=== PATIENT | female | born 1930 | race Caucasian/White ===

== ENCOUNTER 2016-10-15 19:46 | Emergency (ER) | payer MEDICARE, BC ==
[2016-10-15] MEDS ORDERED: Ketorolac 30 MG/ML SDV IVPUSH ONE (20:37)
[2016-10-15] MEDS ORDERED: Sodium Chloride 0.9% 10 ML Syringe FLUSH PRN (20:37)
[2016-10-15] MEDS ORDERED: Dexamethasone 4 MG/ML 5 ML MDV IVPUSH ONE (20:38)
[2016-10-15] MEDS ORDERED: Ondansetron 4 MG/2 ML SDV IVPUSH ONE (20:38)
--- NOTE | 2016-10-15 20:44 | EDM.PDOC ---
ED HPI GENERAL MEDICAL PROBLEM - General Chief Complaint: Headache Stated Complaint: MIGRAINE Time Seen by Provider: 10/15/16 20:20 Source of Information: Reports: Patient, Family, Old Records History Limitations: Reports: No Limitations - History of Present Illness INITIAL COMMENTS - FREE TEXT/NARRATIVE: Lori comes back to [facility] with a relapse of migrainous headache over the past 4 days, unimproved with an injection of Toradol at the Clinic last weekend. There is constant throbbing headache, some nausea and occasional emesis , without photophobia. Her maintenance meds have not been effective today. She is accompanied by her daughter. - Related Data Allergies Allergy/AdvReac Type Severity Reaction Status Date / Time adhesive Allergy Hives Verified 06/15/15 09:18 aspirin Allergy Cannot Verified 05/11/15 16:25 Remember codeine Allergy Cannot Verified 05/11/15 16:25 Remember fentanyl Allergy Cannot Verified 05/11/15 16:25 Remember morphine Allergy Vomiting Verified 05/11/15 16:25 acetaminophen [From Percocet] AdvReac Nausea and Verified 06/15/15 09:18 Vomiting hydrocodone AdvReac Nausea and Verified 06/15/15 09:18 Vomiting hydromorphone HCl AdvReac Nausea and Verified 06/15/15 09:18 [From Dilaudid] Vomiting oxycodone HCl [From Percocet] AdvReac Nausea and Verified 06/15/15 09:18 Vomiting Home Meds: Home Meds Rizatriptan [Maxalt TIN FLOPPER] 10 mg PO ASDIRECTED PRN 03/18/14 [History] Ondansetron [Zofran ODT] 4 mg PO Q6H PRN #10 tab.dis 05/11/15 [Rx] Acetaminophen [Tylenol] 1,000 mg PO ASDIRECTED PRN 06/15/15 [History] Docusate Sodium [Colace] 8.6 - 50 mg PO BID PRN 06/15/15 [History] Ferrous Sulfate 324 mg PO DAILY 06/15/15 [History] Nadolol [Corgard] 40 mg PO DAILY 06/15/15 [History] Potassium Chloride [Klor-Con 10] 20 meq PO DAILY 06/15/15 [History] Ranitidine HCl [Zantac] 150 mg PO BID 06/15/15 [History] Zoledronic Acid in Water [Reclast] 5 mg IV ASDIRECTED 06/15/15 [History] Past Medical History Cardiovascular History: Reports: Heart Failure, Hypertension RN ORTHOPEDIC History: Reports: Musculoskeletal History: Reports: Back Pain, Chronic, Osteoarthritis, Osteoporosis Neurological History: Reports: Migraines Endocrine/Metabolic History: Reports: Osteopenia Hematologic History: Reports: Other (See Below) 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 Oncologic (Cancer) History: Reports: Breast - Past Surgical History HEENT Surgical History: Reports: Cataract Surgery Musculoskeletal Surgical History: Reports: Hip Replacement, Knee Replacement, Shoulder Replacement Social & Family History - Tobacco Use Smoking Status *Q: Never Smoker Second Hand Smoke Exposure: No - Caffeine Use Caffeine Use: Reports: Coffee - Alcohol Use Days Per Week of Alcohol Use: 0 - Recreational Drug Use Recreational Drug Use: No - Living Situation & Occupation Living situation: Reports: , Alone ED ROS GENERAL - Review of Systems Review Of Systems: ROS reveals no pertinent complaints other than HPI. - Physical Exam Exam: See Below Exam Limited By: No Limitations General Appearance: Alert, WD/WN, Moderate Distress Eye Exam: Bilateral Eye: EOMI, Normal Inspection, PERRL Ears: Normal External Exam, Normal TMs Nose: Normal Inspection Throat/Mouth: Normal Inspection, Normal Lips, Normal Oropharynx, Normal Voice Head Exam: Atraumatic, Normocephalic Neck: Normal Inspection, Supple, Non-Tender, Full Range of Motion Respiratory/Chest: Lungs Clear, Normal Breath Sounds, Chest Non-Tender Cardiovascular: Regular Rate, Rhythm, No Edema, No JVD, No Murmur GI/Abdominal: Normal Bowel Sounds, Soft, Non-Tender, No Organomegaly, No Distention, No Mass Neuro Exam (Abbreviated): Alert, Oriented, CN II-XII Intact, Normal Gait, Normal Reflexes, No Motor/Sensory Deficits Back Exam: Normal Inspection, Full Range of Motion Extremities: Normal Inspection Psychiatric: Depressed Mood, Flat Affect Skin Exam: Warm, Dry, Intact, Normal Color Course - Vital Signs Text/Narrative:: Following assession at the [facility], an IV was started in the RUE, and 1L of NS administered over the next 2 hrs, in addition to Toradol 30 mg IV, Zofran 8 mg IV, and Dexamethasone 10 mg IV. VS were carefully monitored. She has been off BP meds, and her BP was elevated 185/100, and she was administered Labetolol 10 mg IV before discharge with good effect. Last Recorded V/S: Last Vital Signs Temp 37.1 C 10/15/16 20:10 Pulse 85 10/15/16 22:15 Resp 18 10/15/16 22:15 BP 192/96 H 10/15/16 22:15 Pulse Ox 97 10/15/16 22:15 - Orders/Labs/Meds Orders: Active Orders 24 hr Category Date Time Status Sodium Chloride 0.9% [Normal Saline] 1,000 ml Med 10/15/16 20:45 Active IV ASDIRECTED Sodium Chloride 0.9% [Saline Flush] Med 10/15/16 20:37 Active 10 ml FLUSH ASDIRECTED PRN Peripheral IV Insertion Adult [OM.PC] Routine Oth 10/15/16 20:37 Ordered Medication Orders Sodium Chloride (Normal Saline) 1,000 mls @ 500 mls/hr IV ASDIRECTED RAMONA Last Admin: 10/15/16 21:03 Dose: 500 mls/hr Sodium Chloride (Saline Flush) 10 ml FLUSH ASDIRECTED PRN PRN Reason: Keep Vein Open Meds: Medications Generic Name Dose Route Start Last Admin Trade Name Freq PRN Reason Stop Dose Admin Sodium Chloride 1,000 mls @ 500 mls/hr 10/15/16 20:45 10/15/16 21:03 Normal Saline IV 500 mls/hr ASDIRECTED RAMONA Administration Sodium Chloride 10 ml 10/15/16 20:37 Saline Flush FLUSH ASDIRECTED PRN Keep Vein Open Discontinued Medications Generic Name Dose Route Start Last Admin Trade Name Freq PRN Reason Stop Dose Admin Dexamethasone 10 mg 10/15/16 20:38 10/15/16 21:10 Dexamethasone IVPUSH 10/15/16 20:39 10 mg ONETIME ONE Administration Ketorolac Tromethamine 30 mg 10/15/16 20:37 10/15/16 21:07 Toradol IVPUSH 10/15/16 20:38 30 mg ONETIME ONE Administration Labetalol HCl 10 mg 10/15/16 22:20 10/15/16 22:28 Normodyne IVPUSH 10/15/16 22:21 10 mg ONETIME ONE Administration Protocol Ondansetron HCl 8 mg 10/15/16 20:38 10/15/16 21:05 Zofran IVPUSH 10/15/16 20:39 8 mg ONETIME ONE Administration Departure - Departure Time of Disposition: 22:50 Disposition: Home, Self-Care 01 Condition: Good Clinical Impression: Migraine, HTN, Essential hypertension - Discharge Information Forms: ED Department Discharge - Problem List & Annotations (1) Migraine SNOMED Code(s): 34518242 Code(s): G43.909 - MIGRAINE, UNSP, NOT INTRACTABLE, WITHOUT STATUS MIGRAINOSUS Status: Acute Current Visit: Yes Annotation/Comment:: Resume maintenance meds in the am. (2) HTN, Essential hypertension SNOMED Code(s): 78732882 Code(s): I10 - ESSENTIAL (PRIMARY) HYPERTENSION Status: Acute Priority: High Current Visit: Yes Annotation/Comment:: Call PCP regarding BP management in the am, as the Corgaard had been held for several days. - Problem List Review Problem List Initiated/Reviewed/Updated: Yes - My Orders Last 24 Hours: My Active Orders 10/15/16 20:37 Sodium Chloride 0.9% [Saline Flush] 10 ml FLUSH ASDIRECTED PRN Peripheral IV Insertion Adult [OM.PC] Routine 10/15/16 20:45 Sodium Chloride 0.9% [Normal Saline] 1,000 ml IV ASDIRECTED - Assessment/Plan Last 24 Hours: My Active Orders 10/15/16 20:37 Sodium Chloride 0.9% [Saline Flush] 10 ml FLUSH ASDIRECTED PRN Peripheral IV Insertion Adult [OM.PC] Routine 10/15/16 20:45 Sodium Chloride 0.9% [Normal Saline] 1,000 ml IV ASDIRECTED Plan: Follow up with PCP.
[2016-10-15] MEDS ORDERED: Sodium Chloride 0.9% 1,000 ML IV SCH (20:45)
[2016-10-15] MEDS ORDERED: Labetalol 20 MG/4 ML Syringe IVPUSH ONE (22:20)
[2016-10-15 23:23] VITALS: BP 160/65
== END 2016-10-15 23:05 | disposition home or self-care (01) ==
LOC: FB.ED 19:46
DX: G43.909 Migraine, unspecified, not intractable, without status migrainosus (principal); I50.9 Heart failure, unspecified; I10 Essential (primary) hypertension; Z86.718 Personal history of other venous thrombosis and embolism; Z85.3 Personal history of malignant neoplasm of breast; Z88.8 Allergy status to other drugs, medicaments and biological substances; Z79.899 Other long term (current) drug therapy
CPT/HCPCS: 96365; 96375; 99283; J1100; J1885; J2405; J7040; 96361; 96374; 99284

== ENCOUNTER 2017-03-18 17:37 | Emergency (ER) | payer MEDICARE, BC ==
--- NOTE | 2017-03-18 18:44 | EDM.PDOC ---
ED HPI GENERAL MEDICAL PROBLEM - General Chief Complaint: Chest Pain Stated Complaint: HIGH BP, CHEST PAIN Time Seen by Provider: 03/18/17 18:10 Source of Information: Reports: Patient History Limitations: Reports: No Limitations - History of Present Illness INITIAL COMMENTS - FREE TEXT/NARRATIVE: c/o L-sided chest wall pain x 2-3y occurs at 3p daily and lasts until bedtime, gone when she wakes up in the middle of the night, always in the same spot at the AAL to the L of the nipple, tender to touch, no change with DB or walking or moving arms worse today, here with daughter 70y h/o migraines, takes Maxalt most AMs, takes Aleve x 2 and APAP 500 mg x 2 most AMs, some AMs will take tramadol saw [place] neurologist 2w ago who inc'd losartan 50 to 100 mg for inc'd BP, also gave Botox for her migraines saw PCP Dr Lucas 3d ago, no change in meds, discussed her CP with him no f/c/d, no cough, no n/v drives altho dtr says "she is not supposed to," dtr drove her over had lumpectomy on L 17y ago, no RT, no CT left breast Pain Score (Numeric/FACES): 7 - Related Data Allergies Allergy/AdvReac Type Severity Reaction Status Date / Time adhesive Allergy Hives Verified 03/18/17 18:07 aspirin Allergy Cannot Verified 03/18/17 18:07 Remember codeine Allergy Cannot Verified 03/18/17 18:07 Remember fentanyl Allergy Cannot Verified 03/18/17 18:07 Remember morphine Allergy Vomiting Verified 03/18/17 18:07 acetaminophen [From Percocet] AdvReac Nausea and Verified 03/18/17 18:07 Vomiting hydrocodone AdvReac Nausea and Verified 03/18/17 18:07 Vomiting hydromorphone HCl AdvReac Nausea and Verified 03/18/17 18:07 [From Dilaudid] Vomiting oxycodone HCl [From Percocet] AdvReac Nausea and Verified 03/18/17 18:07 Vomiting Home Meds: Home Meds Rizatriptan [Maxalt PAPER REWINDER OPERATOR] 10 mg PO ASDIRECTED PRN 03/18/14 [History] Acetaminophen [Tylenol] 1,000 mg PO ASDIRECTED PRN 06/15/15 [History] Docusate Sodium [Colace] 8.6 - 50 mg PO BID PRN 06/15/15 [History] Nadolol [Corgard] 40 mg PO BID 06/15/15 [History] Potassium Chloride [Klor-Con 10] 20 meq PO BEDTIME 06/15/15 [History] Zoledronic Acid in Water [Reclast] 5 mg IV ASDIRECTED 06/15/15 [History] Ondansetron [Zofran ODT] 4 mg PO BID 03/18/17 [History] Past Medical History HEENT History: Reports: Hard of Hearing, Impaired Vision Cardiovascular History: Reports: Heart Failure, 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: Musculoskeletal History: Reports: Back Pain, Chronic, Osteoarthritis, Osteoporosis Neurological History: Reports: Migraines Endocrine/Metabolic History: Reports: Osteopenia Hematologic History: Reports: Other (See Below) 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 Oncologic (Cancer) History: Reports: Breast - Past Surgical History HEENT Surgical History: Reports: Cataract Surgery Musculoskeletal Surgical History: Reports: Hip Replacement, Knee Replacement, Shoulder Replacement Social & Family History - Family History Family Medical History: Unobtainable - Tobacco Use Smoking Status *Q: Never Smoker Second Hand Smoke Exposure: No - Caffeine Use Caffeine Use: Reports: Coffee, Soda - Alcohol Use Days Per Week of Alcohol Use: 0 - Recreational Drug Use Recreational Drug Use: No - Living Situation & Occupation Living situation: Reports: , Alone ED ROS GENERAL - Review of Systems Review Of Systems: See Below Constitutional: Reports: No Symptoms HEENT: Reports: No Symptoms Respiratory: Reports: No Symptoms Cardiovascular: Reports: Chest Pain, Edema, Other (minimal edema, no diuretic) Endocrine: Reports: No Symptoms GI/Abdominal: Reports: No Symptoms : Reports: No Symptoms Musculoskeletal: Reports: No Symptoms Skin: Reports: No Symptoms Neurological: Reports: No Symptoms Psychiatric: Reports: No Symptoms Hematologic/Lymphatic: Reports: No Symptoms Immunologic: Reports: No Symptoms ED EXAM, GENERAL - Physical Exam Exam: See Below Exam Limited By: No Limitations General Appearance: Alert, WD/WN, No Apparent Distress. No: Mild Distress Ears: Normal External Exam, Normal Canal, Hearing Grossly Normal Nose: Normal Inspection, Normal Mucosa, No Blood Throat/Mouth: Normal Inspection, Normal Lips, Normal Teeth, Normal Gums, Normal Oropharynx, Normal Voice, No Airway Compromise Head: Atraumatic, Normocephalic Neck: Normal Inspection, Supple, Non-Tender, Full Range of Motion Respiratory/Chest: No Respiratory Distress, Lungs Clear, Normal Breath Sounds, No Accessory Muscle Use, Other (chest wall with 1+ tender at AAL at 4th and 5th ribs, a little tender at breast at L half, no masses, no axillary LNs) Cardiovascular: Regular Rate, Rhythm, No Edema, No Gallop, No JVD, No Murmur, No Rub GI/Abdominal: Normal Bowel Sounds, Soft, Non-Tender, No Organomegaly, No Distention, No Mass Back Exam: Normal Inspection, Full Range of Motion, NT Extremities: Normal Inspection, Normal Range of Motion, Non-Tender, Normal Capillary Refill, Other (1+ edema to knees b/l) Neurological: Alert, Oriented, CN II-XII Intact, Normal Cognition, No Motor/ Sensory Deficits, Other (O x 3, does have difficulty remembering medical hx which was volunterred by dtr) Psychiatric: Normal Affect, Normal Mood Skin Exam: Warm, Dry, Intact, Normal Color, No Rash Lymphatic: No Adenopathy Course - Vital Signs Last Recorded V/S: Last Vital Signs Temp 36.7 C 03/18/17 17:40 Pulse 64 03/18/17 17:40 Resp 22 H 03/18/17 17:40 BP 183/74 H 03/18/17 17:40 Pulse Ox 100 03/18/17 17:40 - Orders/Labs/Meds Orders: Active Orders 24 hr Category Date Time Status EKG Documentation Completion [RC] ASDIRECTED Care 03/18/17 18:30 Active CBC WITH AUTO DIFF [HEME] Stat Lab 03/18/17 18:40 Received COMPREHENSIVE METABOLIC PN,CMP [CHEM] Stat Lab 03/18/17 18:40 Received CRP [C-REACTIVE PROTEIN] [CHEM] Stat Lab 03/18/17 18:40 Received TROPONIN I [CHEM] Stat Lab 03/18/17 18:40 Received EKG 12 Lead [EK] Routine Ther 03/18/17 18:30 Ordered - Re-Assessments/Exams Free Text/Narrative Re-Assessment/Exam: 03/18/17 19:05 BP improved nicely to 166/86, PE c/w chest wall strain, nonspecific, no cardiac sxs, will d/c, Dr Colby to review labs after change of shift and will address if abnl Departure - Departure Time of Disposition: 19:06 Disposition: Home, Self-Care 01 Condition: Good Clinical Impression: Chest wall discomfort Instructions: Chest Wall Pain Referrals: Layton Galarza MD [Primary Care Provider] - Forms: ED Department Discharge Additional Instructions: Continue current meds. Use warm compresses for 10 minutes several times a day as needed. May repeat acetaminophen 500 mg 2 tabs up to 4 times a day. See Dr Lucas in 2-3 days as needed. Return to ED if you are feeling worse. Call your Physician or Return to Emergency Department if: * Your condition worsens in any way. * You develop fever greater than 100.4. * You have vomitting that does not stop with medications. * You have pain that is not controlled with medications. - My Orders Last 24 Hours: My Active Orders 03/18/17 18:30 EKG Documentation Completion [RC] ASDIRECTED EKG 12 Lead [EK] Routine 03/18/17 18:40 CBC WITH AUTO DIFF [HEME] Stat COMPREHENSIVE METABOLIC PN,CMP [CHEM] Stat CRP [C-REACTIVE PROTEIN] [CHEM] Stat TROPONIN I [CHEM] Stat - Assessment/Plan Last 24 Hours: My Active Orders 03/18/17 18:30 EKG Documentation Completion [RC] ASDIRECTED EKG 12 Lead [EK] Routine 03/18/17 18:40 CBC WITH AUTO DIFF [HEME] Stat COMPREHENSIVE METABOLIC PN,CMP [CHEM] Stat CRP [C-REACTIVE PROTEIN] [CHEM] Stat TROPONIN I [CHEM] Stat
[2017-03-18 19:42] VITALS: BP 179/77
== END 2017-03-18 19:30 | disposition home or self-care (01) ==
LOC: FB.ED 17:37
DX: R07.89 Other chest pain (principal); I11.0 Hypertensive heart disease with heart failure; I50.9 Heart failure, unspecified; Z88.5 Allergy status to narcotic agent; Z88.6 Allergy status to analgesic agent; Z91.048 Other nonmedicinal substance allergy status
CPT/HCPCS: 36415; 80053; 84484; 85025; 86140; 93005; 99285

== ENCOUNTER 2018-09-22 13:42 | Inpatient (IN) | payer MEDICARE, BC ==
[2018-09-22] MEDS ORDERED: Levofloxacin/Dextrose 5%-Water 500 MG in Premix Bag 1 BAG IV SCH (15:30)
[2018-09-22] MEDS ORDERED: Albuterol/Ipratropium 3.0-0.5 MG/3 ML Neb Soln NEB SCH (16:00)
[2018-09-22] MEDS: Sodium Chloride 0.9% 10 ML Syringe FLUSH PRN ×2 (16:09→18:19)
[2018-09-22] MEDS ORDERED: RIZATRIPTAN 10 MG PO PRN (17:03)
[2018-09-22] MEDS ORDERED: Fluticasone Propionate Nasal Spray 16 GM Bottle NASBOTH PRN (17:03)
--- NOTE | 2018-09-22 17:05 | PCM.HP ---
H&P History of Present Illness - General Date of Service: 09/22/18 Admit Problem/Dx: Admission Diagnosis/Problem Admission Diagnosis/Problem Pneumonia Source of Information: Patient, Old Records History Limitations: Reports: No Limitations - History of Present Illness Initial Comments - Free Text/Narative: 87-year-old female who came in directly from the clinic because of. She had seen Dr. Beal last week and treated with Z-Tray for chest x-ray findings suggestive of pneumonia. She continues to cough and reports cough for at least 8 months,dry sometimes productive of yellow sputum. She has had recurrent treatments sinusitis with Dr Galarza, but with no improvement. She also endorses shortness of breath, fatigue, lack of appetite generalized malaise but she denies any fever or chills.She does not have any chest pain. She is previously healthy with exception of hypertension,a history of pulmonary embolism, and degenerative joint disease. - Related Data Allergies/Adverse Reactions: Allergies Allergy/AdvReac Type Severity Reaction Status Date / Time adhesive Allergy Hives Verified 03/18/17 18:07 aspirin Allergy Cannot Verified 03/18/17 18:07 Remember codeine Allergy Cannot Verified 03/18/17 18:07 Remember fentanyl Allergy Cannot Verified 03/18/17 18:07 Remember morphine Allergy Vomiting Verified 03/18/17 18:07 acetaminophen [From Percocet] AdvReac Nausea and Verified 03/18/17 18:07 Vomiting hydrocodone AdvReac Nausea and Verified 03/18/17 18:07 Vomiting hydromorphone HCl AdvReac Nausea and Verified 03/18/17 18:07 [From Dilaudid] Vomiting oxycodone HCl [From Percocet] AdvReac Nausea and Verified 03/18/17 18:07 Vomiting Home Medications: Home Meds Rizatriptan [Maxalt LIGHT ADJUSTER] 10 mg PO ASDIRECTED PRN 03/18/14 [History] Nadolol [Corgard] 40 mg PO DAILY 06/15/15 [History] Potassium Chloride [Klor-Con 10] 20 meq PO BEDTIME 06/15/15 [History] Zoledronic Acid in Water [Reclast] 5 mg IV Q360D 06/15/15 [History] Acetaminophen [Tylenol Extra Strength] 500 mg PO Q4H PRN 09/22/18 [History] Celecoxib 200 mg PO DAILY 09/22/18 [History] Donepezil HCl [Aricept] 10 mg PO DAILY 09/22/18 [History] Fluticasone Propionate [Flonase] 1 spray NASBOTH BID PRN 09/22/18 [History] Losartan [Cozaar] 100 mg PO DAILY 09/22/18 [History] Methimazole [Tapazole] 5 mg PO DAILY 09/22/18 [History] Nadolol [Corgard] 80 mg PO BEDTIME 09/22/18 [History] Pantoprazole Sodium [Protonix] 40 mg PO DAILY@0600 09/22/18 [History] Sennosides/Docusate Sodium [Senna-S] 1 tab PO BEDTIME 09/22/18 [History] amLODIPine [Norvasc] 5 mg PO DAILY 09/22/18 [History] traMADol [Ultram] 50 mg PO DAILY PRN 09/22/18 [History] Past Medical History HEENT History: Reports: Hard of Hearing, Impaired Vision Cardiovascular History: Reports: Heart Failure, Hypertension ROD HANGER History: Reports: Musculoskeletal History: Reports: Back Pain, Chronic, Osteoarthritis, Osteoporosis Neurological History: Reports: Migraines Endocrine/Metabolic History: Reports: Osteopenia Hematologic History: Reports: Other (See Below) 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 Oncologic (Cancer) History: Reports: Breast - Past Surgical History HEENT Surgical History: Reports: Cataract Surgery Musculoskeletal Surgical History: Reports: Hip Replacement, Knee Replacement, Shoulder Replacement Social & Family History - Family History Family Medical History: Unobtainable - Tobacco Use Smoking Status *Q: Never Smoker Second Hand Smoke Exposure: No - Caffeine Use Caffeine Use: Reports: Coffee - Recreational Drug Use Recreational Drug Use: No - Living Situation & Occupation Living situation: Reports: , Alone H&P Review of Systems - Review of Systems: Review Of Systems: ROS reveals no pertinent complaints other than HPI. Exam - Exam Exam: See Below - Vital Signs Vital Signs: Last Vital Signs Temp 98.1 F 09/22/18 15:20 Pulse 60 09/22/18 15:20 Resp 18 09/22/18 15:20 BP 155/76 H 09/22/18 15:20 Pulse Ox 95 09/22/18 15:20 Weight: 73.437 kg - Exam General: Alert, Oriented, 4 HEENT: PERRLA, Hearing Intact, Mucosa Moist & [place], Nares Patent, Normal Nasal Septum, Posterior Pharynx Clear, Conjunctiva Clear, EOMI, EACs Clear, TMs Clear Neck: Supple, Trachea Midline, 2 Lungs: Crackles Cardiovascular: Regular Rate, Regular Rhythm GI/Abdominal Exam: Normal Bowel Sounds, Soft, Non-Tender, No Organomegaly, No Distention, No Abnormal Bruit, No Mass, Pelvis Stable (Female) Exam: Deferred Rectal (Female) Exam: Deferred Back Exam: Normal Inspection, Full Range of Motion, NT Extremities: Normal Inspection, Normal Range of Motion, Non-Tender, No Pedal Edema, Normal Capillary Refill Skin: Warm, Dry, Intact Neurological: Cranial Nerves Intact, Reflexes Equal Bilateral Neuro Extensive - Mental Status: Alert, Oriented x3, Normal Mood/Affect, Normal Cognition Neuro Extensive - Motor, Sensory, Reflexes: CN II-XII Intact, Normal Gait, Normal Reflexes Psychiatric: Alert, Normal Affect, Normal Mood - Patient Data Lab Results Last 24 hrs: Laboratory Results - last 24 hr 09/22/18 09/22/18 Range/Units 15:45 15:45 WBC 9.0 (4.5-12.0) X10-3/uL RBC 4.58 (3.23-5.20) x10(6)uL Hgb 14.4 (11.5-15.5) g/dL Hct 41.1 (30.0-51.3) % MCV 89.7 (80-96) fL MCH 31.5 (27.7-33.6) pg MCHC 35.1 (32.2-35.4) g/dL RDW 13.2 (11.5-15.5) % Plt Count 236 (125-369) X10(3)uL MPV 9.3 (7.4-10.4) fL Neut % (Auto) 61.7 (46-82) % Lymph % (Auto) 27.2 (13-37) % Christian % (Auto) 9.6 (4-12) % Eos % (Auto) 1 (1.0-5.0) % Baso % (Auto) 0 (0-2) % Neut # (Auto) 5.6 (1.6-8.3) # Lymph # (Auto) 2.4 (0.6-5.0) # Christian # (Auto) 0.9 (0.0-1.3) # Eos # (Auto) 0.1 (0.0-0.8) # Baso # (Auto) 0.0 (0.0-0.2) # Sodium 138 (135-145) mmol/L Potassium 3.7 (3.5-5.3) mmol/L Chloride 104 (100-110) mmol/L Carbon Dioxide 26 (21-32) mmol/L BUN 22 H (7-18) mg/dL Creatinine 1.0 (0.55-1.02) mg/dL Est Cr Clr Drug Dosing 31.35 mL/min Estimated GFR (MDRD) 52 L (>60) BUN/Creatinine Ratio 22.0 H (9-20) Glucose 138 H (80-116) mg/dL Calcium 9.0 (8.6-10.2) mg/dL Total Bilirubin 0.4 (0.1-1.3) mg/dL AST 13 D (5-25) IU/L ALT 17 D (12-36) U/L Alkaline Phosphatase 66 (56-112) IU/L Total Protein 7.4 (6.0-8.0) g/dL Albumin 2.8 L (3.2-4.6) g/dL Globulin 4.6 g/dL Albumin/Globulin Ratio 0.6 Result Diagrams: 09/23/18 06:20 09/23/18 06:20 - Problem List (1) CAP (community acquired pneumonia) SNOMED Code(s): 000059396 ICD Code: J18.9 - PNEUMONIA, UNSPECIFIED ORGANISM Status: Acute Current Visit: Yes (2) History of pulmonary embolism SNOMED Code(s): 663720269 ICD Code: Z86.711 - PERSONAL HISTORY OF PULMONARY EMBOLISM Status: Chronic Current Visit: Yes (3) H/O malignant neoplasm of breast SNOMED Code(s): 969975513 ICD Code: Z85.3 - PERSONAL HISTORY OF MALIGNANT NEOPLASM OF BREAST Status: Chronic Current Visit: Yes (4) H/O CHF SNOMED Code(s): 800680735 ICD Code: Z86.79 - PERSONAL HISTORY OF OTHER DISEASES OF THE CIRCULATORY SYSTEM Status: Chronic Current Visit: Yes (5) HTN, Essential hypertension SNOMED Code(s): 58658687 ICD Code: I10 - ESSENTIAL (PRIMARY) HYPERTENSION Status: Chronic Priority : High Current Visit: No Problem Details: Call PCP regarding BP management in the am, as the Corgaard had been held for several days. (6) Migraine SNOMED Code(s): 76820780 ICD Code: G43.909 - MIGRAINE, UNSP, NOT INTRACTABLE, WITHOUT STATUS MIGRAINOSUS Status: Acute Current Visit: No Problem Details: Resume maintenance meds in the am. (7) Osteoarthritis of multiple joints SNOMED Code(s): 156517885 ICD Code: M15.9 - POLYOSTEOARTHRITIS, UNSPECIFIED Status: Chronic Current Visit: No Problem List Initiated/Reviewed/Updated: Yes Orders Last 24hrs: Active Orders 24 hr Category Date Time Status Patient Status [ADT] Routine ADT 09/22/18 15:20 Active Height and Weight [RC] DAILY Care 09/22/18 15:20 Active Oxygen Therapy [RC] PRN Care 09/22/18 15:20 Active RT Aerosol Therapy [RC] ASDIRECTED Care 09/22/18 15:21 Active Up With Assistance [RC] ASDIRECTED Care 09/22/18 15:20 Active VTE/DVT Education [RC] Per Unit Routine Care 09/22/18 15:20 Active Vital Signs [RC] Q8H Care 09/22/18 15:20 Active Regular Diet [DIET] Diet 09/22/18 Breakfast Active Chest 2V [CR] Stat Exams 09/22/18 15:20 Taken Chest w Cont [CT] Routine Exams 09/22/18 17:01 Ordered BASIC METABOLIC PANEL,BMP [CHEM] AM Lab 09/23/18 05:11 Ordered CBC WITH AUTO DIFF [HEME] AM Lab 09/23/18 05:11 Ordered CULTURE BLOOD [BC] Urgent Lab 09/22/18 15:45 Received CULTURE BLOOD [BC] Urgent Lab 09/22/18 15:50 Received PRO B-TYPE NATRIUR PEPT,BNPPRO [CHEM] DAILY Lab 09/23/18 05:11 Ordered TSH ULTRASENSITIVE [CHEM] AM Lab 09/23/18 05:11 Ordered Acetaminophen [Tylenol Extra Strength] Med 09/22/18 17:03 Ordered 500 mg PO Q4H PRN Albuterol/Ipratropium [DuoNeb 3.0-0.5 MG/3 ML] Med 09/22/18 17:00 Active 3 ml NEB QID Benzonatate [Tessalon Perles] Med 09/22/18 21:00 Ordered 200 mg PO TID Celecoxib [CeleBREX] Med 09/23/18 09:00 Ordered 200 mg PO DAILY Docusate Sodium/Sennosides [Senna Plus] Med 09/22/18 21:00 Ordered 1 tab PO BEDTIME Donepezil [Aricept] Med 09/23/18 09:00 Ordered 10 mg PO DAILY Fluticasone Propionate [Flonase] Med 09/22/18 17:03 Ordered 1 spray NASBOTH BID PRN Levofloxacin/Dextrose 5%-Water [Levaquin in D5W 500 MG/ Med 09/22/18 15:30 Active 100 ML] 500 mg Premix Bag 1 bag IV Q24H Nadolol [Naldol] Med 09/23/18 09:00 Ordered 40 mg PO DAILY Nadolol [Naldol] Med 09/22/18 21:00 Ordered 80 mg PO BEDTIME Pantoprazole [ProTONIX] Med 09/23/18 06:00 Ordered 40 mg PO DAILY@0600 Potassium Chloride [Klor-Con 10] Med 09/22/18 21:00 Ordered 20 meq PO BEDTIME Rizatriptan [Maxalt LIGHT ADJUSTER] Med 09/22/18 17:03 Ordered 10 mg PO ASDIRECTED PRN Sodium Chloride 0.9% @ 100 MLS/HR(1,000ml) Med 09/22/18 17:15 Ordered Sodium Chloride 0.9% [Normal Saline] 1,000 ml IV ASDIRECTED Sodium Chloride 0.9% [Saline Flush] Med 09/22/18 15:20 Active 10 ml FLUSH ASDIRECTED PRN amLODIPine [Norvasc] Med 09/23/18 09:00 Ordered 5 mg PO DAILY methIMAzole Med 09/23/18 09:00 Ordered 5 mg PO DAILY methylPREDNISolone Sod Succ [Solu-MEDROL] Med 09/22/18 17:15 Ordered 125 mg IVPUSH Q8H traMADol [Ultram] Med 09/22/18 17:03 Ordered 50 mg PO DAILY PRN Blood Culture x2 Reflex Set [OM.PC] Urgent Oth 09/22/18 15:20 Ordered Saline Lock Insert [OM.PC] Routine Oth 09/22/18 15:20 Ordered Resuscitation Status Routine Resus Stat 06/17/19 15:20 Ordered Medication Orders Albuterol/Ipratropium (Duoneb 3.0-0.5 Mg/3 Ml) 3 ml NEB QID [facility] Benzonatate (Tessalon Perles) 200 mg PO TID [facility] Levofloxacin/Dextrose 500 mg/ (Premix) 100 mls @ 100 mls/hr IV Q24H [facility] Last Admin: 09/22/18 16:07 Dose: 100 mls/hr Sodium Chloride (Normal Saline) 1,000 mls @ 100 mls/hr IV ASDIRECTED [facility] Methylprednisolone Sodium Succinate (Solu-Medrol) 125 mg IVPUSH Q8H [facility] Sodium Chloride (Saline Flush) 10 ml FLUSH ASDIRECTED PRN PRN Reason: Keep Vein Open Last Admin: 09/22/18 16:09 Dose: 10 ml Assessment/Plan Comment:: I ordered a CT that showed confirmatory opacities possibly infectious the lungs along with lymphadenopathy in the hilar region. I've chosen to tripple antibiotic therapy as I await blood cultures and will also treat her with Tessalon Perles,Solu-Medrol and IV fluid resuscitation. These are are along with DVT prophylaxis.
[2018-09-22] MEDS: Albuterol/Ipratropium 3.0-0.5 MG/3 ML Neb Soln NEB SCH ×2 (17:09→20:09)
[2018-09-22] MEDS ORDERED: Iopamidol 755 Mg/ML 75 ML Bottle IV ONE (17:31)
[2018-09-22] MEDS ORDERED: traMADol 50 MG Tab PO PRN (17:45)
[2018-09-22] MEDS: methylPREDNISolone Sodium Succinate 125 MG/2 ML SDV IVPUSH SCH (18:19)
[2018-09-22] MEDS: Sodium Chloride 0.9% 1,000 ML IV SCH (19:29)
[2018-09-22] MEDS: Benzonatate 100 MG Cap PO SCH (20:40)
[2018-09-22] MEDS: Potassium Chloride 20 MEQ Tab.ER PO SCH (20:40)
[2018-09-23] MEDS ORDERED: hydrOXYzine HCl 25 MG Tab ONE (01:30)
[2018-09-23] MEDS: hydrOXYzine HCl 25 MG Tab PO PRN ×2 (01:43→21:31)
[2018-09-23] MEDS: methylPREDNISolone Sodium Succinate 125 MG/2 ML SDV IVPUSH SCH ×3 (01:47→17:20)
[2018-09-23] MEDS: Sodium Chloride 0.9% 1,000 ML IV SCH (04:55)
[2018-09-23] MEDS: Pantoprazole 40 MG Tab.CR PO SCH (05:45)
[2018-09-23] MEDS: Piperacillin/Tazobactam 2.25 GM in Sodium Chloride 0.9% 50 ML IV SCH ×3 (08:28→20:03)
--- NOTE | 2018-09-23 08:45 | PCM.PN ---
- General Info Date of Service: 09/23/18 Subjective Update: Did not sleep well. Functional Status: Reports: Pain Controlled, Tolerating Diet - Review of Systems General: Reports: Weakness, Fatigue HEENT: Reports: No Symptoms Pulmonary: Reports: Cough Cardiovascular: Denies: Chest Pain, PND Genitourinary: Reports: No Symptoms - Patient Data Vitals - Most Recent: Last Vital Signs Temp 97.5 F 09/23/18 00:00 Pulse 64 09/23/18 00:00 Resp 14 09/23/18 00:00 BP 151/66 H 09/23/18 00:00 Pulse Ox 96 09/23/18 00:00 Weight - Most Recent: 73.437 kg I&O - Last 24 Hours: Intake & Output 09/22/18 09/23/18 09/23/18 22:59 06:59 14:59 Intake Total 1029 Balance 1029 Lab Results Last 24 Hours: Laboratory Results - last 24 hr 09/22/18 09/22/18 09/23/18 Range/Units 15:45 15:45 06:20 WBC 9.0 7.5 (4.5-12.0) X10-3/uL RBC 4.58 4.36 (3.23-5.20) x10(6)uL Hgb 14.4 13.6 (11.5-15.5) g/dL Hct 41.1 39.3 (30.0-51.3) % MCV 89.7 89.9 (80-96) fL MCH 31.5 31.1 (27.7-33.6) pg MCHC 35.1 34.5 (32.2-35.4) g/dL RDW 13.2 13.3 (11.5-15.5) % Plt Count 236 216 (125-369) X10(3)uL MPV 9.3 9.2 (7.4-10.4) fL Neut % (Auto) 61.7 (46-82) % Lymph % (Auto) 27.2 (13-37) % [place] % (Auto) 9.6 (4-12) % Eos % (Auto) 1 (1.0-5.0) % Baso % (Auto) 0 (0-2) % Neut # (Auto) 5.6 (1.6-8.3) # Lymph # (Auto) 2.4 (0.6-5.0) # [place] # (Auto) 0.9 (0.0-1.3) # Eos # (Auto) 0.1 (0.0-0.8) # Baso # (Auto) 0.0 (0.0-0.2) # Add Manual Diff Yes Neutrophils % (Manual) 82 (46-82) % Band Neutrophils % 1 (0-6) % Lymphocytes % (Manual) 17 (13-37) % Sodium 138 (135-145) mmol/L Potassium 3.7 (3.5-5.3) mmol/L Chloride 104 (100-110) mmol/L Carbon Dioxide 26 (21-32) mmol/L BUN 22 H (7-18) mg/dL Creatinine 1.0 (0.55-1.02) mg/dL Est Cr Clr Drug Dosing 31.35 mL/min Estimated GFR (MDRD) 52 L (>60) BUN/Creatinine Ratio 22.0 H (9-20) Glucose 138 H (80-116) mg/dL Calcium 9.0 (8.6-10.2) mg/dL Total Bilirubin 0.4 (0.1-1.3) mg/dL AST 13 D (5-25) IU/L ALT 17 D (12-36) U/L Alkaline Phosphatase 66 (56-112) IU/L NT-Pro-B Natriuret Pep (<=450) pg/mL Total Protein 7.4 (6.0-8.0) g/dL Albumin 2.8 L (3.2-4.6) g/dL Globulin 4.6 g/dL Albumin/Globulin Ratio 0.6 TSH, Ultra Sensitive (0.36-3.74) IU/mL 19 09/23/18 Range/Units 06:20 06:20 WBC (4.5-12.0) X10-3/uL RBC (3.23-5.20) x10(6)uL Hgb (11.5-15.5) g/dL Hct (30.0-51.3) % MCV (80-96) fL MCH (27.7-33.6) pg MCHC (32.2-35.4) g/dL RDW (11.5-15.5) % Plt Count (125-369) X10(3)uL MPV (7.4-10.4) fL Neut % (Auto) (46-82) % Lymph % (Auto) (13-37) % [place] % (Auto) (4-12) % Eos % (Auto) (1.0-5.0) % Baso % (Auto) (0-2) % Neut # (Auto) (1.6-8.3) # Lymph # (Auto) (0.6-5.0) # [place] # (Auto) (0.0-1.3) # Eos # (Auto) (0.0-0.8) # Baso # (Auto) (0.0-0.2) # Add Manual Diff Neutrophils % (Manual) (46-82) % Band Neutrophils % (0-6) % Lymphocytes % (Manual) (13-37) % Sodium 139 (135-145) mmol/L Potassium 4.0 (3.5-5.3) mmol/L Chloride 104 (100-110) mmol/L Carbon Dioxide 25 (21-32) mmol/L BUN 19 H (7-18) mg/dL Creatinine 1.1 H (0.55-1.02) mg/dL Est Cr Clr Drug Dosing 28.50 mL/min Estimated GFR (MDRD) 47 L (>60) BUN/Creatinine Ratio 17.3 (9-20) Glucose 175 H (80-116) mg/dL Calcium 8.8 (8.6-10.2) mg/dL Total Bilirubin (0.1-1.3) mg/dL AST (5-25) IU/L ALT (12-36) U/L Alkaline Phosphatase (56-112) IU/L NT-Pro-B Natriuret Pep 1272 H* (<=450) pg/mL Total Protein (6.0-8.0) g/dL Albumin (3.2-4.6) g/dL Globulin g/dL Albumin/Globulin Ratio TSH, Ultra Sensitive 0.55 (0.36-3.74) IU/mL Med Orders - Current: Current Medications Acetaminophen (Tylenol Extra Strength) 500 mg PO Q4H PRN PRN Reason: Pain Albuterol/Ipratropium (Duoneb 3.0-0.5 Mg/3 Ml) 3 ml NEB QID [facility] Last Admin: 09/22/18 20:09 Dose: 3 ml Amlodipine Besylate (Norvasc) 5 mg PO DAILY [facility] Benzonatate (Tessalon Perles) 200 mg PO TID [facility] Last Admin: 09/22/18 20:40 Dose: 200 mg Celecoxib (Celebrex) 200 mg PO DAILY [facility] Donepezil HCl (Aricept) 10 mg PO DAILY [facility] Enoxaparin Sodium (Lovenox) 30 mg SUBCUT Q24H [facility] Fluticasone Propionate (Flonase) 0 gm NASBOTH BID PRN PRN Reason: Allergies Hydroxyzine HCl (Atarax) 25 mg PO BEDTIME PRN PRN Reason: Insomnia Last Admin: 09/23/18 01:43 Dose: 25 mg Piperacillin Sod/Tazobactam (Sod 2.25 gm/ Sodium Chloride) 50 mls @ 100 mls/hr IV Q6H [facility] Last Admin: 09/23/18 08:28 Dose: 100 mls/hr Vancomycin HCl 1 gm/ Sodium (Chloride) 250 mls @ 250 mls/hr IV Q24H [facility] Levofloxacin/Dextrose 250 mg/ (Premix) 50 mls @ 50 mls/hr IV Q24H [facility] Methimazole (Methimazole) 5 mg PO DAILY [facility] Methylprednisolone Sodium Succinate (Solu-Medrol) 125 mg IVPUSH Q8H [facility] Last Admin: 09/23/18 01:47 Dose: 125 mg Nadolol (Naldol) 40 mg PO DAILY [facility] Nadolol (Naldol) 80 mg PO BEDTIME [facility] Last Admin: 09/22/18 21:07 Dose: 80 mg Non-Formulary Medication (Rizatriptan [Maxalt Compressed Yeast Supervisor]) 10 mg PO ASDIRECTED PRN PRN Reason: MIGRAINE Pantoprazole Sodium (Protonix) 40 mg PO DAILY@0600 [facility] Last Admin: 09/23/18 05:45 Dose: 40 mg Potassium Chloride (Klor-Con M20) 20 meq PO BEDTIME [facility] Last Admin: 09/22/18 20:40 Dose: 20 meq Saccharomyces Boulardii (Florastor) 250 mg PO BID [facility] Senna/Docusate Sodium (Senna Plus) 1 tab PO BEDTIME [facility] Last Admin: 09/22/18 20:40 Dose: 1 tab Sodium Chloride (Saline Flush) 10 ml FLUSH ASDIRECTED PRN PRN Reason: Keep Vein Open Last Admin: 09/22/18 18:19 Dose: 10 ml Tramadol HCl (Ultram) 50 mg PO DAILY PRN PRN Reason: Pain Vancomycin HCl (Pharmacy To Dose - Vancomycin) 1 dose .XX ASDIRECTED [facility] Discontinued Medications Hydroxyzine HCl (Atarax) Confirm Administered Dose 25 mg .ROUTE .STK-MED ONE Stop: 09/23/18 01:31 Last Admin: 09/23/18 01:41 Dose: Not Given Levofloxacin/Dextrose 500 mg/ (Premix) 100 mls @ 100 mls/hr IV Q24H [facility] Last Admin: 09/22/18 16:07 Dose: 100 mls/hr Sodium Chloride (Normal Saline) 1,000 mls @ 100 mls/hr IV ASDIRECTED [facility] Last Admin: 09/23/18 04:55 Dose: 100 mls/hr Iopamidol (Isovue-370 (76%)) 75 ml IV ONETIME ONE Stop: 09/22/18 17:32 Last Admin: 09/22/18 17:33 Dose: 75 ml Nadolol (Naldol) 80 mg PO BEDTIME [facility] - Exam General: Alert, Oriented HEENT: Pupils Equal Lungs: Crackles, Rales Cardiovascular: Regular Rate - Problem List & Annotations (1) CAP (community acquired pneumonia) SNOMED Code(s): 272515753 Code(s): J18.9 - PNEUMONIA, UNSPECIFIED ORGANISM Status: Acute Current Visit: Yes Qualifiers: Laterality: unspecified laterality Qualified Code(s): J18.9 - Pneumonia, unspecified organism (2) History of pulmonary embolism SNOMED Code(s): 282167612 Code(s): Z86.711 - PERSONAL HISTORY OF PULMONARY EMBOLISM Status: Chronic Current Visit: Yes (3) H/O malignant neoplasm of breast SNOMED Code(s): 683797879 Code(s): Z85.3 - PERSONAL HISTORY OF MALIGNANT NEOPLASM OF BREAST Status: Chronic Current Visit: Yes (4) H/O CHF SNOMED Code(s): 422962319 Code(s): Z86.79 - PERSONAL HISTORY OF OTHER DISEASES OF THE CIRCULATORY SYSTEM Status: Chronic Current Visit: Yes (5) HTN, Essential hypertension SNOMED Code(s): 35007192 Code(s): I10 - ESSENTIAL (PRIMARY) HYPERTENSION Status: Chronic Priority : High Current Visit: No Annotation/Comment:: Call PCP regarding BP management in the am, as the Corgaard had been held for several days. (6) Migraine SNOMED Code(s): 56284684 Code(s): G43.909 - MIGRAINE, UNSP, NOT INTRACTABLE, WITHOUT STATUS MIGRAINOSUS Status: Acute Current Visit: No Annotation/Comment:: Resume maintenance meds in the am. (7) Osteoarthritis of multiple joints SNOMED Code(s): 791689541 Code(s): M15.9 - POLYOSTEOARTHRITIS, UNSPECIFIED Status: Chronic Current Visit: No - Problem List Review Problem List Initiated/Reviewed/Updated: Yes - My Orders Last 24 Hours: My Active Orders 09/22/18 15:20 Patient Status [ADT] Routine Height and Weight [RC] 06 Oxygen Therapy [RC] PRN Up With Assistance [RC] ASDIRECTED Vital Signs [RC] QSHIFT Chest 2V [CR] Stat Sodium Chloride 0.9% [Saline Flush] 10 ml FLUSH ASDIRECTED PRN Blood Culture x2 Reflex Set [OM.PC] Urgent Saline Lock Insert [OM.PC] Routine Resuscitation Status Routine 09/22/18 15:21 RT Aerosol Therapy [RC] ASDIRECTED 09/22/18 15:45 CULTURE BLOOD [BC] Urgent 09/22/18 15:50 CULTURE BLOOD [BC] Urgent 09/22/18 17:00 Albuterol/Ipratropium [DuoNeb 3.0-0.5 MG/3 ML] 3 ml NEB QID 09/22/18 17:01 Chest w Cont [CT] Routine 09/22/18 17:03 Acetaminophen [Tylenol Extra Strength] 500 mg PO Q4H PRN Fluticasone Propionate [Flonase] 0 gm NASBOTH BID PRN Rizatriptan [Maxalt CHILD CARE COORDINATOR] 10 mg PO ASDIRECTED PRN 09/22/18 17:45 traMADol [Ultram] 50 mg PO DAILY PRN 09/22/18 18:00 methylPREDNISolone Sod Succ [Solu-MEDROL] 125 mg IVPUSH Q8H 09/22/18 21:00 Benzonatate [Tessalon Perles] 200 mg PO TID Docusate Sodium/Sennosides [Senna Plus] 1 tab PO BEDTIME Nadolol [Naldol] 80 mg PO BEDTIME Potassium Chloride [Klor-Con M20] 20 meq PO BEDTIME 09/23/18 01:37 hydrOXYzine HCl [Atarax] 25 mg PO BEDTIME PRN 09/23/18 06:00 Pantoprazole [ProTONIX] 40 mg PO DAILY@0600 09/23/18 08:30 Piperacillin/Tazobactam [Zosyn] 2.25 gm Sodium Chloride 0.9% [Normal Saline] 50 ml IV Q6H 09/23/18 08:45 Pharmacy to Dose - Vancomycin 1 dose .XX ASDIRECTED 09/23/18 09:00 Celecoxib [CeleBREX] 200 mg PO DAILY Donepezil [Aricept] 10 mg PO DAILY Enoxaparin [Lovenox] 30 mg SUBCUT Q24H Nadolol [Naldol] 40 mg PO DAILY Saccharomyces Boulardii [Florastor] 250 mg PO BID amLODIPine [Norvasc] 5 mg PO DAILY methIMAzole 5 mg PO DAILY 09/23/18 10:00 Vancomycin 1 gm Sodium Chloride 0.9% [Normal Saline] 250 ml IV Q24H 09/23/18 17:00 Levofloxacin/Dextrose 5%-Water [Levaquin in D5W 250 MG/50 ML] 250 mg Premix Bag 1 bag IV Q24H - Plan Plan:: Continue Tripple abx therapy.DC IVF.
[2018-09-23] MEDS: Celecoxib 200 MG Cap PO SCH (08:54)
[2018-09-23] MEDS: Donepezil 10 MG Tab PO SCH (08:54)
[2018-09-23] MEDS: Methimazole 5 MG Tab PO SCH (08:55)
[2018-09-23] MEDS: Enoxaparin 30 MG/0.3 ML Syringe SUBCUT SCH (08:55)
[2018-09-23] MEDS: Saccharomyces Boulardii (Probiotic) 250 MG Cap PO SCH ×2 (08:55→20:18)
[2018-09-23] MEDS: amLODIPine 5 MG Tab PO SCH (08:56)
[2018-09-23] MEDS: Benzonatate 100 MG Cap PO SCH ×3 (08:57→20:21)
[2018-09-23] MEDS: Albuterol/Ipratropium 3.0-0.5 MG/3 ML Neb Soln NEB SCH ×4 (08:57→20:15)
[2018-09-23] MEDS: Sodium Chloride 0.9% 10 ML Syringe FLUSH PRN ×5 (09:08→20:14)
[2018-09-23] MEDS: Acetaminophen 500 MG Tab PO PRN ×2 (11:21→20:14)
[2018-09-23] MEDS ORDERED: Ketorolac 30 MG/ML SDV IVPUSH ONE (11:37)
[2018-09-23] MEDS ORDERED: Metoclopramide 10 MG/2 ML SDV IVPUSH ONE (11:37)
[2018-09-23] MEDS ORDERED: Ketorolac 15 MG/ML SDV IVPUSH ONE (11:45)
[2018-09-23] MEDS: Levofloxacin/Dextrose 5%-Water 250 MG in Premix Bag 1 BAG IV SCH (17:18)
[2018-09-23] MEDS: Potassium Chloride 20 MEQ Tab.ER PO SCH (20:18)
[2018-09-24] MEDS: methylPREDNISolone Sodium Succinate 125 MG/2 ML SDV IVPUSH SCH ×3 (02:18→17:56)
[2018-09-24] MEDS: Sodium Chloride 0.9% 10 ML Syringe FLUSH PRN ×7 (02:22→21:00)
[2018-09-24] MEDS: Piperacillin/Tazobactam 2.25 GM in Sodium Chloride 0.9% 50 ML IV SCH ×4 (02:24→20:59)
[2018-09-24] MEDS: Pantoprazole 40 MG Tab.CR PO SCH (07:03)
[2018-09-24] MEDS: Methimazole 5 MG Tab PO SCH (08:49)
[2018-09-24] MEDS: Benzonatate 100 MG Cap PO SCH ×3 (08:49→21:07)
[2018-09-24] MEDS: Celecoxib 200 MG Cap PO SCH (08:50)
[2018-09-24] MEDS: Enoxaparin 30 MG/0.3 ML Syringe SUBCUT SCH (08:50)
[2018-09-24] MEDS: Donepezil 10 MG Tab PO SCH (08:50)
[2018-09-24] MEDS: Saccharomyces Boulardii (Probiotic) 250 MG Cap PO SCH ×2 (08:50→21:06)
[2018-09-24] MEDS: Albuterol/Ipratropium 3.0-0.5 MG/3 ML Neb Soln NEB SCH ×4 (08:50→20:58)
[2018-09-24] MEDS: amLODIPine 5 MG Tab PO SCH (08:50)
--- NOTE | 2018-09-24 10:16 | PCM.PN ---
- General Info Date of Service: 09/24/18 Subjective Update: Improving slowly,.still weak. Functional Status: Reports: Pain Controlled - Review of Systems General: Reports: Weakness, Fatigue, Malaise HEENT: Reports: No Symptoms Pulmonary: Reports: Shortness of Breath Cardiovascular: Reports: No Symptoms Gastrointestinal: Reports: No Symptoms Genitourinary: Reports: No Symptoms - Patient Data Vitals - Most Recent: Last Vital Signs Temp 97.5 F 09/24/18 08:42 Pulse 74 09/24/18 08:49 Resp 14 09/24/18 08:42 BP 142/66 H 09/24/18 08:50 Pulse Ox 95 09/24/18 08:42 Weight - Most Recent: 76.022 kg I&O - Last 24 Hours: Intake & Output 09/23/18 09/24/18 09/24/18 22:59 06:59 14:59 Intake Total 45 50 Balance 45 50 Cory Results Last 24 Hours: Microbiology 09/22/18 15:50 Aerobic Blood Culture - Preliminary Blood - Venous - Lab Draw NO GROWTH AFTER 1 DAY Anaerobic Blood Culture - Preliminary NO GROWTH AFTER 1 DAY 09/22/18 15:45 Aerobic Blood Culture - Preliminary Blood - Venous NO GROWTH AFTER 1 DAY Anaerobic Blood Culture - Preliminary NO GROWTH AFTER 1 DAY Med Orders - Current: Current Medications Acetaminophen (Tylenol Extra Strength) 500 mg PO Q4H PRN PRN Reason: Pain Last Admin: 09/23/18 20:14 Dose: 500 mg Albuterol/Ipratropium (Duoneb 3.0-0.5 Mg/3 Ml) 3 ml NEB QID [facility] Last Admin: 09/24/18 08:50 Dose: 3 ml Amlodipine Besylate (Norvasc) 5 mg PO DAILY [facility] Last Admin: 09/24/18 08:50 Dose: 5 mg Benzonatate (Tessalon Perles) 200 mg PO TID [facility] Last Admin: 09/24/18 08:49 Dose: 200 mg Celecoxib (Celebrex) 200 mg PO DAILY [facility] Last Admin: 09/24/18 08:50 Dose: 200 mg Donepezil HCl (Aricept) 10 mg PO DAILY [facility] Last Admin: 09/24/18 08:50 Dose: 10 mg Enoxaparin Sodium (Lovenox) 30 mg SUBCUT Q24H [facility] Last Admin: 06/19/19 08:50 Dose: 30 mg Fluticasone Propionate (Flonase) 0 gm NASBOTH BID PRN PRN Reason: Allergies Hydroxyzine HCl (Atarax) 25 mg PO BEDTIME PRN PRN Reason: Insomnia Last Admin: 09/23/18 21:31 Dose: 25 mg Piperacillin Sod/Tazobactam (Sod 2.25 gm/ Sodium Chloride) 50 mls @ 100 mls/hr IV Q6H [facility] Last Admin: 09/24/18 08:42 Dose: 100 mls/hr Vancomycin HCl 1 gm/ Sodium (Chloride) 250 mls @ 250 mls/hr IV Q24H [facility] Last Admin: 09/23/18 10:07 Dose: 250 mls/hr Levofloxacin/Dextrose 250 mg/ (Premix) 50 mls @ 50 mls/hr IV Q24H [facility] Last Admin: 09/23/18 17:18 Dose: 50 mls/hr Methimazole (Methimazole) 5 mg PO DAILY [facility] Last Admin: 09/24/18 08:49 Dose: 5 mg Methylprednisolone Sodium Succinate (Solu-Medrol) 125 mg IVPUSH Q8H [facility] Last Admin: 09/24/18 02:18 Dose: 125 mg Nadolol (Naldol) 40 mg PO DAILY [facility] Last Admin: 09/24/18 08:49 Dose: 40 mg Nadolol (Naldol) 80 mg PO BEDTIME [facility] Last Admin: 09/23/18 20:19 Dose: 80 mg Non-Formulary Medication (Rizatriptan [Maxalt Magazine Writer]) 10 mg PO ASDIRECTED PRN PRN Reason: MIGRAINE Pantoprazole Sodium (Protonix) 40 mg PO DAILY@0600 [facility] Last Admin: 09/24/18 07:03 Dose: 40 mg Potassium Chloride (Klor-Con M20) 20 meq PO BEDTIME [facility] Last Admin: 09/23/18 20:18 Dose: 20 meq Saccharomyces Boulardii (Florastor) 250 mg PO BID [facility] Last Admin: 09/24/18 08:50 Dose: 250 mg Senna/Docusate Sodium (Senna Plus) 1 tab PO BEDTIME [facility] Last Admin: 09/23/18 20:20 Dose: 1 tab Sodium Chloride (Saline Flush) 10 ml FLUSH ASDIRECTED PRN PRN Reason: Keep Vein Open Last Admin: 09/24/18 09:20 Dose: 10 ml Tramadol HCl (Ultram) 50 mg PO DAILY PRN PRN Reason: Pain Vancomycin HCl (Pharmacy To Dose - Vancomycin) 1 dose .XX ASDIRECTED [facility] Discontinued Medications Hydroxyzine HCl (Atarax) Confirm Administered Dose 25 mg .ROUTE .STK-MED ONE Stop: 09/23/18 01:31 Last Admin: 09/23/18 01:41 Dose: Not Given Levofloxacin/Dextrose 500 mg/ (Premix) 100 mls @ 100 mls/hr IV Q24H [facility] Last Admin: 09/22/18 16:07 Dose: 100 mls/hr Sodium Chloride (Normal Saline) 1,000 mls @ 100 mls/hr IV ASDIRECTED [facility] Last Admin: 09/23/18 04:55 Dose: 100 mls/hr Iopamidol (Isovue-370 (76%)) 75 ml IV ONETIME ONE Stop: 09/22/18 17:32 Last Admin: 09/22/18 17:33 Dose: 75 ml Ketorolac Tromethamine (Toradol) 15 mg IVPUSH ONETIME ONE Stop: 09/23/18 11:46 Last Admin: 09/23/18 11:52 Dose: 15 mg Metoclopramide HCl (Reglan) 10 mg IVPUSH ONETIME ONE Stop: 09/23/18 11:38 Last Admin: 09/23/18 11:51 Dose: 10 mg Nadolol (Naldol) 80 mg PO BEDTIME [facility] - Exam General: Alert HEENT: Pupils Equal Neck: Supple Lungs: Clear to Auscultation Cardiovascular: Regular Rate - Problem List & Annotations (1) CAP (community acquired pneumonia) SNOMED Code(s): 944297825 Code(s): J18.9 - PNEUMONIA, UNSPECIFIED ORGANISM Status: Acute Current Visit: Yes Qualifiers: Laterality: unspecified laterality Qualified Code(s): J18.9 - Pneumonia, unspecified organism (2) History of pulmonary embolism SNOMED Code(s): 089251696 Code(s): Z86.711 - PERSONAL HISTORY OF PULMONARY EMBOLISM Status: Chronic Current Visit: Yes (3) H/O malignant neoplasm of breast SNOMED Code(s): 553703654 Code(s): Z85.3 - PERSONAL HISTORY OF MALIGNANT NEOPLASM OF BREAST Status: Chronic Current Visit: Yes (4) H/O CHF SNOMED Code(s): 650786495 Code(s): Z86.79 - PERSONAL HISTORY OF OTHER DISEASES OF THE CIRCULATORY SYSTEM Status: Chronic Current Visit: Yes (5) HTN, Essential hypertension SNOMED Code(s): 83822739 Code(s): I10 - ESSENTIAL (PRIMARY) HYPERTENSION Status: Chronic Priority : High Current Visit: No Annotation/Comment:: Call PCP regarding BP management in the am, as the [place] had been held for several days. (6) Migraine SNOMED Code(s): 29779348 Code(s): G43.909 - MIGRAINE, UNSP, NOT INTRACTABLE, WITHOUT STATUS MIGRAINOSUS Status: Acute Current Visit: No Annotation/Comment:: Resume maintenance meds in the am. (7) Osteoarthritis of multiple joints SNOMED Code(s): 675297277 Code(s): M15.9 - POLYOSTEOARTHRITIS, UNSPECIFIED Status: Chronic Current Visit: No - Problem List Review Problem List Initiated/Reviewed/Updated: Yes - My Orders Last 24 Hours: My Active Orders 09/23/18 09:07 Communication Order [RC] ASDIRECTED 09/23/18 10:00 Vancomycin 1 gm Sodium Chloride 0.9% [Normal Saline] 250 ml IV Q24H 09/23/18 17:00 Levofloxacin/Dextrose 5%-Water [Levaquin in D5W 250 MG/50 ML] 250 mg Premix Bag 1 bag IV Q24H 09/25/18 09:30 VANCOMYCIN TROUGH [CHEM] Timed - Plan Plan:: Continue Tripple abx therapy.DC IVF. Repeat labs in Am,and consider PT
[2018-09-24] MEDS: Levofloxacin/Dextrose 5%-Water 250 MG in Premix Bag 1 BAG IV SCH (16:51)
[2018-09-24] MEDS: Potassium Chloride 20 MEQ Tab.ER PO SCH (21:08)
[2018-09-24] MEDS: hydrOXYzine HCl 25 MG Tab PO PRN (22:50)
[2018-09-25] MEDS: methylPREDNISolone Sodium Succinate 125 MG/2 ML SDV IVPUSH SCH ×3 (02:15→17:57)
[2018-09-25] MEDS: Sodium Chloride 0.9% 10 ML Syringe FLUSH PRN ×7 (02:15→21:40)
[2018-09-25] MEDS: Piperacillin/Tazobactam 2.25 GM in Sodium Chloride 0.9% 50 ML IV SCH ×4 (02:23→20:58)
[2018-09-25] MEDS: Pantoprazole 40 MG Tab.CR PO SCH (06:41)
[2018-09-25] MEDS: Acetaminophen 500 MG Tab PO PRN ×2 (07:45→17:57)
[2018-09-25] MEDS: Donepezil 10 MG Tab PO SCH (08:20)
[2018-09-25] MEDS: Celecoxib 200 MG Cap PO SCH (08:21)
[2018-09-25] MEDS: Saccharomyces Boulardii (Probiotic) 250 MG Cap PO SCH ×2 (08:23→20:29)
[2018-09-25] MEDS: Enoxaparin 30 MG/0.3 ML Syringe SUBCUT SCH (08:24)
[2018-09-25] MEDS: Benzonatate 100 MG Cap PO SCH ×3 (08:24→20:35)
[2018-09-25] MEDS: Methimazole 5 MG Tab PO SCH (08:24)
[2018-09-25] MEDS: amLODIPine 5 MG Tab PO SCH (08:25)
--- NOTE | 2018-09-25 08:44 | PCM.PN ---
- General Info Date of Service: 09/25/18 Subjective Update: Feeling weak.Appetite improving slowly.No fever. - Review of Systems General: Reports: Weakness, Fatigue HEENT: Reports: No Symptoms Pulmonary: Reports: Cough Cardiovascular: Reports: No Symptoms Gastrointestinal: Reports: No Symptoms Genitourinary: Reports: No Symptoms - Patient Data Vitals - Most Recent: Last Vital Signs Temp 97.5 F 09/25/18 07:36 Pulse 70 09/25/18 08:21 Resp 17 09/25/18 07:36 BP 164/86 H 09/25/18 08:25 Pulse Ox 96 09/25/18 07:36 Weight - Most Recent: 76.929 kg I&O - Last 24 Hours: Intake & Output 09/24/18 09/25/18 09/25/18 22:59 06:59 14:59 Intake Total 45 50 50 Balance 45 50 50 Cory Results Last 24 Hours: Microbiology 09/22/18 15:45 Aerobic Blood Culture - Preliminary Blood - Venous NO GROWTH AFTER 2 DAYS Anaerobic Blood Culture - Preliminary NO GROWTH AFTER 2 DAYS 09/22/18 15:50 Aerobic Blood Culture - Preliminary Blood - Venous - Lab Draw NO GROWTH AFTER 2 DAYS Anaerobic Blood Culture - Preliminary NO GROWTH AFTER 2 DAYS Med Orders - Current: Current Medications Acetaminophen (Tylenol Extra Strength) 500 mg PO Q4H PRN PRN Reason: Pain Last Admin: 09/25/18 07:45 Dose: 500 mg Albuterol/Ipratropium (Duoneb 3.0-0.5 Mg/3 Ml) 3 ml NEB QID [facility] Last Admin: 09/24/18 20:58 Dose: 3 ml Amlodipine Besylate (Norvasc) 5 mg PO DAILY [facility] Last Admin: 09/25/18 08:25 Dose: 5 mg Benzonatate (Tessalon Perles) 200 mg PO TID [facility] Last Admin: 09/25/18 08:24 Dose: 200 mg Celecoxib (Celebrex) 200 mg PO DAILY [facility] Last Admin: 09/25/18 08:21 Dose: 200 mg Donepezil HCl (Aricept) 10 mg PO DAILY [facility] Last Admin: 09/25/18 08:20 Dose: 10 mg Enoxaparin Sodium (Lovenox) 30 mg SUBCUT Q24H [facility] Last Admin: 09/25/18 08:24 Dose: 30 mg Fluticasone Propionate (Flonase) 0 gm NASBOTH BID PRN PRN Reason: Allergies Hydroxyzine HCl (Atarax) 25 mg PO BEDTIME PRN PRN Reason: Insomnia Last Admin: 09/24/18 22:50 Dose: 25 mg Piperacillin Sod/Tazobactam (Sod 2.25 gm/ Sodium Chloride) 50 mls @ 100 mls/hr IV Q6H [facility] Last Admin: 09/25/18 08:04 Dose: 100 mls/hr Vancomycin HCl 1 gm/ Sodium (Chloride) 250 mls @ 250 mls/hr IV Q24H [facility] Last Admin: 09/24/18 10:54 Dose: 250 mls/hr Levofloxacin/Dextrose 250 mg/ (Premix) 50 mls @ 50 mls/hr IV Q24H [facility] Last Admin: 09/24/18 16:51 Dose: 50 mls/hr Methimazole (Methimazole) 5 mg PO DAILY [facility] Last Admin: 09/25/18 08:24 Dose: 5 mg Methylprednisolone Sodium Succinate (Solu-Medrol) 125 mg IVPUSH Q8H [facility] Last Admin: 09/25/18 02:15 Dose: 125 mg Nadolol (Naldol) 40 mg PO DAILY [facility] Last Admin: 09/25/18 08:21 Dose: 40 mg Nadolol (Naldol) 80 mg PO BEDTIME [facility] Last Admin: 09/24/18 21:06 Dose: 80 mg Non-Formulary Medication (Rizatriptan [Maxalt Toll Mechanic]) 10 mg PO ASDIRECTED PRN PRN Reason: MIGRAINE Pantoprazole Sodium (Protonix) 40 mg PO DAILY@0600 [facility] Last Admin: 09/25/18 06:41 Dose: 40 mg Potassium Chloride (Klor-Con M20) 20 meq PO BEDTIME [facility] Last Admin: 09/24/18 21:08 Dose: 20 meq Saccharomyces Boulardii (Florastor) 250 mg PO BID [facility] Last Admin: 09/25/18 08:23 Dose: 250 mg Senna/Docusate Sodium (Senna Plus) 1 tab PO BEDTIME [facility] Last Admin: 09/24/18 21:08 Dose: 1 tab Sodium Chloride (Saline Flush) 10 ml FLUSH ASDIRECTED PRN PRN Reason: Keep Vein Open Last Admin: 09/25/18 08:00 Dose: 10 ml Tramadol HCl (Ultram) 50 mg PO DAILY PRN PRN Reason: Pain Vancomycin HCl (Pharmacy To Dose - Vancomycin) 1 dose .XX ASDIRECTED [facility] Discontinued Medications Hydroxyzine HCl (Atarax) Confirm Administered Dose 25 mg .ROUTE .STK-MED ONE Stop: 09/23/18 01:31 Last Admin: 09/23/18 01:41 Dose: Not Given Levofloxacin/Dextrose 500 mg/ (Premix) 100 mls @ 100 mls/hr IV Q24H [facility] Last Admin: 09/22/18 16:07 Dose: 100 mls/hr Sodium Chloride (Normal Saline) 1,000 mls @ 100 mls/hr IV ASDIRECTED [facility] Last Admin: 09/23/18 04:55 Dose: 100 mls/hr Iopamidol (Isovue-370 (76%)) 75 ml IV ONETIME ONE Stop: 09/22/18 17:32 Last Admin: 09/22/18 17:33 Dose: 75 ml Ketorolac Tromethamine (Toradol) 15 mg IVPUSH ONETIME ONE Stop: 09/23/18 11:46 Last Admin: 09/23/18 11:52 Dose: 15 mg Metoclopramide HCl (Reglan) 10 mg IVPUSH ONETIME ONE Stop: 09/23/18 11:38 Last Admin: 09/23/18 11:51 Dose: 10 mg Nadolol (Naldol) 80 mg PO BEDTIME [facility] - Exam General: Alert, Oriented HEENT: Pupils Equal Lungs: Clear to Auscultation Cardiovascular: Regular Rate GI/Abdominal Exam: Normal Bowel Sounds Psy/Mental Status: Alert - Problem List & Annotations (1) CAP (community acquired pneumonia) SNOMED Code(s): 118253375 Code(s): J18.9 - PNEUMONIA, UNSPECIFIED ORGANISM Status: Acute Current Visit: Yes Qualifiers: Laterality: unspecified laterality Qualified Code(s): J18.9 - Pneumonia, unspecified organism (2) History of pulmonary embolism SNOMED Code(s): 416210618 Code(s): Z86.711 - PERSONAL HISTORY OF PULMONARY EMBOLISM Status: Chronic Current Visit: Yes (3) H/O malignant neoplasm of breast SNOMED Code(s): 374824821 Code(s): Z85.3 - PERSONAL HISTORY OF MALIGNANT NEOPLASM OF BREAST Status: Chronic Current Visit: Yes (4) H/O CHF SNOMED Code(s): 395425172 Code(s): Z86.79 - PERSONAL HISTORY OF OTHER DISEASES OF THE CIRCULATORY SYSTEM Status: Chronic Current Visit: Yes (5) HTN, Essential hypertension SNOMED Code(s): 54189153 Code(s): I10 - ESSENTIAL (PRIMARY) HYPERTENSION Status: Chronic Priority : High Current Visit: No Annotation/Comment:: Call PCP regarding BP management in the am, as the [place] had been held for several days. (6) Migraine SNOMED Code(s): 88233794 Code(s): G43.909 - MIGRAINE, UNSP, NOT INTRACTABLE, WITHOUT STATUS MIGRAINOSUS Status: Acute Current Visit: No Annotation/Comment:: Resume maintenance meds in the am. (7) Osteoarthritis of multiple joints SNOMED Code(s): 489697587 Code(s): M15.9 - POLYOSTEOARTHRITIS, UNSPECIFIED Status: Chronic Current Visit: No - Problem List Review Problem List Initiated/Reviewed/Updated: Yes - My Orders Last 24 Hours: My Active Orders 09/25/18 05:11 BASIC METABOLIC PANEL,BMP [CHEM] AM CBC WITH AUTO DIFF [HEME] AM 09/25/18 08:40 OT Evaluation and Treatment [CONS] Routine PT Evaluation and Treatment [CONS] Routine 09/25/18 09:30 VANCOMYCIN TROUGH [CHEM] Routine 09/26/18 05:11 CBC WITH AUTO DIFF [HEME] AM COMPREHENSIVE METABOLIC PN,CMP [CHEM] AM PRO B-TYPE NATRIUR PEPT,BNPPRO [CHEM] DAILY TROPONIN I [CHEM] AM 09/26/18 08:40 Chest 2V [CR] Routine - Plan Plan:: 1 more day of IV abx.Repeat labs and CXR in AM. Consult PT/OT for strengthening. ?Swing Bed candidate
[2018-09-25] MEDS: Albuterol/Ipratropium 3.0-0.5 MG/3 ML Neb Soln NEB SCH ×4 (10:01→20:34)
[2018-09-25] MEDS: Levofloxacin/Dextrose 5%-Water 250 MG in Premix Bag 1 BAG IV SCH (17:15)
[2018-09-25] MEDS: Potassium Chloride 20 MEQ Tab.ER PO SCH (20:30)
[2018-09-25] MEDS: hydrOXYzine HCl 25 MG Tab PO PRN (21:42)
[2018-09-26] MEDS: methylPREDNISolone Sodium Succinate 125 MG/2 ML SDV IVPUSH SCH (01:39)
[2018-09-26] MEDS: Piperacillin/Tazobactam 2.25 GM in Sodium Chloride 0.9% 50 ML IV SCH ×2 (01:42→09:21)
[2018-09-26] MEDS: Sodium Chloride 0.9% 10 ML Syringe FLUSH PRN ×2 (01:46→09:44)
[2018-09-26] MEDS: Pantoprazole 40 MG Tab.CR PO SCH (05:15)
[2018-09-26] MEDS: Albuterol/Ipratropium 3.0-0.5 MG/3 ML Neb Soln NEB SCH ×4 (09:12→20:18)
--- NOTE | 2018-09-26 09:12 | PCM.PN ---
- General Info Date of Service: 09/26/18 Admission Dx/Problem (Free Text): Patient states her cough and breathing are better. She still feels little short of breath and she feels very weak. She is already knows. She denies fevers, chills, chest pain or leg swelling. - Patient Data Vitals - Most Recent: Last Vital Signs Temp 98.4 F 09/26/18 00:00 Pulse 64 09/26/18 00:00 Resp 16 09/26/18 00:00 BP 157/68 H 09/26/18 00:00 Pulse Ox 94 L 09/26/18 00:00 Weight - Most Recent: 170 lb 5 oz I&O - Last 24 Hours: Intake & Output 09/25/18 09/26/18 09/26/18 22:59 06:59 14:59 Intake Total 100 50 Balance 100 50 Lab Results Last 24 Hours: Laboratory Results - last 24 hr 09/25/18 09/25/18 09/25/18 Range/Units 09:30 09:30 09:30 WBC 16.2 H (4.5-12.0) X10-3/uL RBC 4.65 (3.23-5.20) x10(6)uL Hgb 14.3 (11.5-15.5) g/dL Hct 42.2 (30.0-51.3) % MCV 90.7 (80-96) fL MCH 30.8 (27.7-33.6) pg MCHC 33.9 (32.2-35.4) g/dL RDW 13.4 (11.5-15.5) % Plt Count 184 (125-369) X10(3)uL MPV 9.5 (7.4-10.4) fL Neut % (Auto) (46-82) % Lymph % (Auto) (13-37) % [place] % (Auto) (4-12) % Eos % (Auto) (1.0-5.0) % Baso % (Auto) (0-2) % Neut # (Auto) (1.6-8.3) # Lymph # (Auto) (0.6-5.0) # [place] # (Auto) (0.0-1.3) # Eos # (Auto) (0.0-0.8) # Baso # (Auto) (0.0-0.2) # Add Manual Diff Yes Neutrophils % (Manual) 97 H (46-82) % Lymphocytes % (Manual) 2 L (13-37) % Monocytes % (Manual) 1 L (4-12) % Sodium 140 (135-145) mmol/L Potassium 3.6 (3.5-5.3) mmol/L Chloride 103 (100-110) mmol/L Carbon Dioxide 22 (21-32) mmol/L BUN 21 H (7-18) mg/dL Creatinine 1.3 H (0.55-1.02) mg/dL Est Cr Clr Drug Dosing 24.11 mL/min Estimated GFR (MDRD) 39 L (>60) BUN/Creatinine Ratio 16.2 (9-20) Glucose 266 H D (80-116) mg/dL Calcium 7.9 L (8.6-10.2) mg/dL Total Bilirubin (0.1-1.3) mg/dL AST (5-25) IU/L ALT (12-36) U/L Alkaline Phosphatase (56-112) IU/L Troponin I (<0.017-0.056) ng/mL NT-Pro-B Natriuret Pep (<=450) pg/mL Total Protein (6.0-8.0) g/dL Albumin (3.2-4.6) g/dL Globulin g/dL Albumin/Globulin Ratio Vancomycin Trough 6.8 (<0.8) ug/mL 09/26/18 09/26/18 09/26/18 Range/Units 06:07 06:07 06:07 WBC 11.6 (4.5-12.0) X10-3/uL RBC 4.40 (3.23-5.20) x10(6)uL Hgb 13.5 (11.5-15.5) g/dL Hct 39.7 (30.0-51.3) % MCV 90.3 (80-96) fL MCH 30.6 (27.7-33.6) pg MCHC 33.9 (32.2-35.4) g/dL RDW 13.2 (11.5-15.5) % Plt Count 183 (125-369) X10(3)uL MPV 9.2 (7.4-10.4) fL Neut % (Auto) 90.7 H (46-82) % Lymph % (Auto) 6.3 L (13-37) % [place] % (Auto) 2.6 L (4-12) % Eos % (Auto) 0 L (1.0-5.0) % Baso % (Auto) 0 (0-2) % Neut # (Auto) 10.6 H (1.6-8.3) # Lymph # (Auto) 0.7 (0.6-5.0) # [place] # (Auto) 0.3 (0.0-1.3) # Eos # (Auto) 0.0 (0.0-0.8) # Baso # (Auto) 0.0 (0.0-0.2) # Add Manual Diff Neutrophils % (Manual) (46-82) % Lymphocytes % (Manual) (13-37) % Monocytes % (Manual) (4-12) % Sodium 142 (135-145) mmol/L Potassium 3.3 L (3.5-5.3) mmol/L Chloride 104 (100-110) mmol/L Carbon Dioxide 27 (21-32) mmol/L BUN 23 H (7-18) mg/dL Creatinine 1.1 H (0.55-1.02) mg/dL Est Cr Clr Drug Dosing 28.50 mL/min Estimated GFR (MDRD) 47 L (>60) BUN/Creatinine Ratio 20.9 H (9-20) Glucose 182 H D (80-116) mg/dL Calcium 7.6 L (8.6-10.2) mg/dL Total Bilirubin 0.4 (0.1-1.3) mg/dL AST 36 H D (5-25) IU/L ALT 83 H D (12-36) U/L Alkaline Phosphatase 54 L (56-112) IU/L Troponin I < 0.017 L (<0.017-0.056) ng/mL NT-Pro-B Natriuret Pep 2927 H* (<=450) pg/mL Total Protein 6.4 (6.0-8.0) g/dL Albumin 2.3 L (3.2-4.6) g/dL Globulin 4.1 g/dL Albumin/Globulin Ratio 0.6 Vancomycin Trough (<0.8) ug/mL Cory Results Last 24 Hours: Microbiology 09/22/18 15:45 Aerobic Blood Culture - Preliminary Blood - Venous NO GROWTH AFTER 3 DAYS Anaerobic Blood Culture - Preliminary NO GROWTH AFTER 3 DAYS 09/22/18 15:50 Aerobic Blood Culture - Preliminary Blood - Venous - Lab Draw NO GROWTH AFTER 3 DAYS Anaerobic Blood Culture - Preliminary NO GROWTH AFTER 3 DAYS Med Orders - Current: Current Medications Acetaminophen (Tylenol Extra Strength) 500 mg PO Q4H PRN PRN Reason: Pain Last Admin: 09/25/18 17:57 Dose: 500 mg Albuterol/Ipratropium (Duoneb 3.0-0.5 Mg/3 Ml) 3 ml NEB QID [facility] Last Admin: 09/25/18 20:34 Dose: 3 ml Amlodipine Besylate (Norvasc) 5 mg PO DAILY [facility] Last Admin: 09/25/18 08:25 Dose: 5 mg Benzonatate (Tessalon Perles) 200 mg PO TID [facility] Last Admin: 09/25/18 20:35 Dose: 200 mg Celecoxib (Celebrex) 200 mg PO DAILY [facility] Last Admin: 09/25/18 08:21 Dose: 200 mg Donepezil HCl (Aricept) 10 mg PO DAILY [facility] Last Admin: 09/25/18 08:20 Dose: 10 mg Enoxaparin Sodium (Lovenox) 30 mg SUBCUT Q24H [facility] Last Admin: 09/25/18 08:24 Dose: 30 mg Fluticasone Propionate (Flonase) 0 gm NASBOTH BID PRN PRN Reason: Allergies Hydroxyzine HCl (Atarax) 25 mg PO BEDTIME PRN PRN Reason: Insomnia Last Admin: 09/25/18 21:42 Dose: 25 mg Levofloxacin (Levaquin) 250 mg PO Q24H [facility] Methimazole (Methimazole) 5 mg PO DAILY [facility] Last Admin: 09/25/18 08:24 Dose: 5 mg Nadolol (Naldol) 40 mg PO DAILY [facility] Last Admin: 09/25/18 08:21 Dose: 40 mg Nadolol (Naldol) 80 mg PO BEDTIME [facility] Last Admin: 09/25/18 20:31 Dose: 80 mg Non-Formulary Medication (Rizatriptan [Maxalt Frame Hand]) 10 mg PO ASDIRECTED PRN PRN Reason: MIGRAINE Pantoprazole Sodium (Protonix) 40 mg PO DAILY@0600 [facility] Last Admin: 09/26/18 05:15 Dose: 40 mg Potassium Chloride (Klor-Con M20) 20 meq PO BEDTIME [facility] Last Admin: 09/25/18 20:30 Dose: 20 meq Prednisone (Prednisone) 40 mg PO WITHBREAKFAST [facility] Saccharomyces Boulardii (Florastor) 250 mg PO BID [facility] Last Admin: 09/25/18 20:29 Dose: 250 mg Senna/Docusate Sodium (Senna Plus) 1 tab PO BEDTIME [facility] Last Admin: 09/25/18 20:33 Dose: 1 tab Sodium Chloride (Saline Flush) 10 ml FLUSH ASDIRECTED PRN PRN Reason: Keep Vein Open Last Admin: 09/26/18 01:46 Dose: 10 ml Tramadol HCl (Ultram) 50 mg PO DAILY PRN PRN Reason: Pain Vancomycin HCl (Pharmacy To Dose - Vancomycin) 1 dose .XX ASDIRECTED [facility] Discontinued Medications Hydroxyzine HCl (Atarax) Confirm Administered Dose 25 mg .ROUTE .STK-MED ONE Stop: 09/23/18 01:31 Last Admin: 09/23/18 01:41 Dose: Not Given Levofloxacin/Dextrose 500 mg/ (Premix) 100 mls @ 100 mls/hr IV Q24H [facility] Last Admin: 09/22/18 16:07 Dose: 100 mls/hr Sodium Chloride (Normal Saline) 1,000 mls @ 100 mls/hr IV ASDIRECTED [facility] Last Admin: 09/23/18 04:55 Dose: 100 mls/hr Piperacillin Sod/Tazobactam (Sod 2.25 gm/ Sodium Chloride) 50 mls @ 100 mls/hr IV Q6H [facility] Last Admin: 09/26/18 01:42 Dose: 100 mls/hr Vancomycin HCl 1 gm/ Sodium (Chloride) 250 mls @ 250 mls/hr IV Q24H [facility] Last Admin: 09/25/18 11:36 Dose: 250 mls/hr Levofloxacin/Dextrose 250 mg/ (Premix) 50 mls @ 50 mls/hr IV Q24H [facility] Last Admin: 09/25/18 17:15 Dose: 50 mls/hr Iopamidol (Isovue-370 (76%)) 75 ml IV ONETIME ONE Stop: 09/22/18 17:32 Last Admin: 09/22/18 17:33 Dose: 75 ml Ketorolac Tromethamine (Toradol) 15 mg IVPUSH ONETIME ONE Stop: 09/23/18 11:46 Last Admin: 09/23/18 11:52 Dose: 15 mg Methylprednisolone Sodium Succinate (Solu-Medrol) 125 mg IVPUSH Q8H [facility] Last Admin: 09/26/18 01:39 Dose: 125 mg Metoclopramide HCl (Reglan) 10 mg IVPUSH ONETIME ONE Stop: 09/23/18 11:38 Last Admin: 09/23/18 11:51 Dose: 10 mg Nadolol (Naldol) 80 mg PO BEDTIME RAMONA - Exam General: Alert, Oriented, Cooperative Lungs: Clear to Auscultation, Normal Respiratory Effort. No: Crackles, Rales, Rhonchi, Rub Cardiovascular: Regular Rate, Regular Rhythm, No Murmurs Extremities: No Pedal Edema - Problem List & Annotations (1) Weakness SNOMED Code(s): 68621070 Code(s): R53.1 - WEAKNESS Status: Acute Current Visit: Yes (2) Palliative care status SNOMED Code(s): 705273011 Code(s): Z51.5 - ENCOUNTER FOR PALLIATIVE CARE Status: Acute Current Visit: Yes (3) CAP (community acquired pneumonia) SNOMED Code(s): 533918440 Code(s): J18.9 - PNEUMONIA, UNSPECIFIED ORGANISM Status: Acute Current Visit: Yes Qualifiers: Laterality: unspecified laterality Qualified Code(s): J18.9 - Pneumonia, unspecified organism (4) Headache SNOMED Code(s): 88551873 Code(s): R51 - HEADACHE Status: Acute Current Visit: No - Problem List Review Problem List Initiated/Reviewed/Updated: Yes - My Orders Last 24 Hours: My Active Orders 09/26/18 08:00 predniSONE 40 mg PO WITHBREAKFAST 09/26/18 09:15 Losartan [Cozaar] 100 mg PO DAILY Zoledronic Acid in Water [Reclast] 5 mg IV Q360D levoFLOXacin [Levaquin] 250 mg PO Q24H - Plan Plan:: 1. DC IV Levaquin, Zosyn, vancomycin and Solu-Medrol. 2. Prednisone 40 mg by mouth a day 3. Levaquin 250 mg once a day per pharmacy dosing. 4. PT/OT 5. Continue current care.
[2018-09-26] MEDS ORDERED: ZOLEDRONIC ACID IV SCH (09:15)
[2018-09-26] MEDS ORDERED: [UNRECOGNIZED DRUG - OTHER] IV SCH (09:15)
[2018-09-26] MEDS: predniSONE 20 MG Tab PO SCH (09:33)
[2018-09-26] MEDS: Celecoxib 200 MG Cap PO SCH (09:34)
[2018-09-26] MEDS: Donepezil 10 MG Tab PO SCH (09:34)
[2018-09-26] MEDS: Saccharomyces Boulardii (Probiotic) 250 MG Cap PO SCH ×2 (09:34→20:19)
[2018-09-26] MEDS: Enoxaparin 30 MG/0.3 ML Syringe SUBCUT SCH (09:34)
[2018-09-26] MEDS: Methimazole 5 MG Tab PO SCH (09:34)
[2018-09-26] MEDS: amLODIPine 5 MG Tab PO SCH (09:36)
[2018-09-26] MEDS: Benzonatate 100 MG Cap PO SCH ×3 (09:36→20:24)
[2018-09-26] MEDS: Losartan 100 MG Tab PO SCH (09:37)
[2018-09-26] MEDS: Levofloxacin 250 MG Tab PO SCH (16:57)
[2018-09-26] MEDS: Potassium Chloride 20 MEQ Tab.ER PO SCH (20:19)
[2018-09-26] MEDS: hydrOXYzine HCl 25 MG Tab PO PRN (23:08)
[2018-09-27] MEDS: Pantoprazole 40 MG Tab.CR PO SCH (06:12)
[2018-09-27] MEDS: predniSONE 20 MG Tab PO SCH (08:21)
[2018-09-27] MEDS: Donepezil 10 MG Tab PO SCH (08:22)
[2018-09-27] MEDS: Losartan 100 MG Tab PO SCH (08:23)
[2018-09-27] MEDS: Celecoxib 200 MG Cap PO SCH (08:23)
[2018-09-27] MEDS: Enoxaparin 30 MG/0.3 ML Syringe SUBCUT SCH (08:24)
[2018-09-27] MEDS: Saccharomyces Boulardii (Probiotic) 250 MG Cap PO SCH ×2 (08:24→20:50)
[2018-09-27] MEDS: Methimazole 5 MG Tab PO SCH (08:25)
[2018-09-27] MEDS: amLODIPine 5 MG Tab PO SCH (08:26)
[2018-09-27] MEDS: Benzonatate 100 MG Cap PO SCH ×3 (08:27→20:53)
[2018-09-27] MEDS: Potassium Chloride 20 MEQ Tab.ER PO SCH ×3 (08:28→21:01)
[2018-09-27] MEDS: Acetaminophen 500 MG Tab PO PRN (08:28)
--- NOTE | 2018-09-27 09:33 | PCM.PN ---
- General Info Date of Service: 09/27/18 Admission Dx/Problem (Free Text): Patient states she feels weak and has some mouth and. She doesn't feel any sores. She denies shortness of breath, chest pain or leg swelling - Patient Data Vitals - Most Recent: Last Vital Signs Temp 98.2 F 09/27/18 07:55 Pulse 58 L 09/27/18 08:26 Resp 20 09/27/18 07:55 BP 169/83 H 09/27/18 08:26 Pulse Ox 98 09/27/18 07:55 Weight - Most Recent: 171 lb 3 oz Lab Results Last 24 Hours: Laboratory Results - last 24 hr 09/27/18 Range/Units 06:20 Sodium 143 (135-145) mmol/L Potassium 3.0 L (3.5-5.3) mmol/L Chloride 105 (100-110) mmol/L Carbon Dioxide 29 (21-32) mmol/L BUN 26 H (7-18) mg/dL Creatinine 1.0 (0.55-1.02) mg/dL Est Cr Clr Drug Dosing 31.35 mL/min Estimated GFR (MDRD) 52 L (>60) BUN/Creatinine Ratio 26.0 H (9-20) Glucose 127 H (80-116) mg/dL Calcium 7.5 L (8.6-10.2) mg/dL Cory Results Last 24 Hours: Microbiology 09/22/18 15:50 Aerobic Blood Culture - Preliminary Blood - Venous - Lab Draw NO GROWTH AFTER 4 DAYS Anaerobic Blood Culture - Preliminary NO GROWTH AFTER 4 DAYS 09/22/18 15:45 Aerobic Blood Culture - Preliminary Blood - Venous NO GROWTH AFTER 4 DAYS Anaerobic Blood Culture - Preliminary NO GROWTH AFTER 4 DAYS Med Orders - Current: Current Medications Acetaminophen (Tylenol Extra Strength) 500 mg PO Q4H PRN PRN Reason: Pain Last Admin: 09/27/18 08:28 Dose: 500 mg Albuterol/Ipratropium (Duoneb 3.0-0.5 Mg/3 Ml) 3 ml NEB QID [facility] Last Admin: 09/26/18 20:18 Dose: 3 ml Amlodipine Besylate (Norvasc) 5 mg PO DAILY [facility] Last Admin: 09/27/18 08:26 Dose: 5 mg Benzonatate (Tessalon Perles) 200 mg PO TID [facility] Last Admin: 09/27/18 08:27 Dose: 200 mg Celecoxib (Celebrex) 200 mg PO DAILY [facility] Last Admin: 09/27/18 08:23 Dose: 200 mg Donepezil HCl (Aricept) 10 mg PO DAILY [facility] Last Admin: 09/27/18 08:22 Dose: 10 mg Enoxaparin Sodium (Lovenox) 30 mg SUBCUT Q24H [facility] Last Admin: 09/27/18 08:24 Dose: 30 mg Fluticasone Propionate (Flonase) 0 gm NASBOTH BID PRN PRN Reason: Allergies Hydroxyzine HCl (Atarax) 25 mg PO BEDTIME PRN PRN Reason: Insomnia Last Admin: 09/26/18 23:08 Dose: 25 mg Levofloxacin (Levaquin) 250 mg PO Q24H [facility] Last Admin: 09/26/18 16:57 Dose: 250 mg Losartan Potassium (Cozaar) 100 mg PO DAILY [facility] Last Admin: 09/27/18 08:23 Dose: 100 mg Methimazole (Methimazole) 5 mg PO DAILY [facility] Last Admin: 09/27/18 08:25 Dose: 5 mg Nadolol (Naldol) 40 mg PO DAILY [facility] Last Admin: 09/27/18 08:26 Dose: 40 mg Nadolol (Naldol) 80 mg PO BEDTIME [facility] Last Admin: 09/26/18 20:19 Dose: 80 mg Non-Formulary Medication (Rizatriptan [Maxalt Thermal Molder]) 10 mg PO ASDIRECTED PRN PRN Reason: MIGRAINE Pantoprazole Sodium (Protonix) 40 mg PO DAILY@0600 [facility] Last Admin: 09/27/18 06:12 Dose: 40 mg Potassium Chloride (Klor-Con M20) 20 meq PO TID [facility] Last Admin: 09/27/18 08:28 Dose: 20 meq Prednisone (Prednisone) 40 mg PO WITHBREAKFAST [facility] Last Admin: 09/27/18 08:21 Dose: 40 mg Saccharomyces Boulardii (Florastor) 250 mg PO BID [facility] Last Admin: 09/27/18 08:24 Dose: 250 mg Senna/Docusate Sodium (Senna Plus) 1 tab PO BEDTIME [facility] Last Admin: 09/26/18 20:24 Dose: 1 tab Sodium Chloride (Saline Flush) 10 ml FLUSH ASDIRECTED PRN PRN Reason: Keep Vein Open Last Admin: 09/26/18 09:44 Dose: 10 ml Tramadol HCl (Ultram) 50 mg PO DAILY PRN PRN Reason: Pain Discontinued Medications Hydroxyzine HCl (Atarax) Confirm Administered Dose 25 mg .ROUTE .STK-MED ONE Stop: 09/23/18 01:31 Last Admin: 09/23/18 01:41 Dose: Not Given Levofloxacin/Dextrose 500 mg/ (Premix) 100 mls @ 100 mls/hr IV Q24H [facility] Last Admin: 09/22/18 16:07 Dose: 100 mls/hr Sodium Chloride (Normal Saline) 1,000 mls @ 100 mls/hr IV ASDIRECTED [facility] Last Admin: 09/23/18 04:55 Dose: 100 mls/hr Piperacillin Sod/Tazobactam (Sod 2.25 gm/ Sodium Chloride) 50 mls @ 100 mls/hr IV Q6H [facility] Last Admin: 09/26/18 09:21 Dose: 100 mls/hr Vancomycin HCl 1 gm/ Sodium (Chloride) 250 mls @ 250 mls/hr IV Q24H [facility] Last Admin: 09/25/18 11:36 Dose: 250 mls/hr Levofloxacin/Dextrose 250 mg/ (Premix) 50 mls @ 50 mls/hr IV Q24H [facility] Last Admin: 09/25/18 17:15 Dose: 50 mls/hr Iopamidol (Isovue-370 (76%)) 75 ml IV ONETIME ONE Stop: 09/22/18 17:32 Last Admin: 09/22/18 17:33 Dose: 75 ml Ketorolac Tromethamine (Toradol) 15 mg IVPUSH ONETIME ONE Stop: 09/23/18 11:46 Last Admin: 09/23/18 11:52 Dose: 15 mg Methylprednisolone Sodium Succinate (Solu-Medrol) 125 mg IVPUSH Q8H [facility] Last Admin: 09/26/18 01:39 Dose: 125 mg Metoclopramide HCl (Reglan) 10 mg IVPUSH ONETIME ONE Stop: 09/23/18 11:38 Last Admin: 09/23/18 11:51 Dose: 10 mg Nadolol (Naldol) 80 mg PO BEDTIME [facility] Non-Formulary Medication (Zoledronic Acid In Water [Reclast]) 5 mg IV Q360D [facility] Potassium Chloride (Klor-Con M20) 20 meq PO BEDTIME [facility] Last Admin: 09/26/18 20:19 Dose: 20 meq Vancomycin HCl (Pharmacy To Dose - Vancomycin) 1 dose .XX ASDIRECTED [facility] - Exam General: Alert, Oriented Neck: Supple Lungs: Clear to Auscultation, Normal Respiratory Effort. No: Rales, Rhonchi, Rub Cardiovascular: Regular Rate, Regular Rhythm Extremities: No Pedal Edema - Problem List & Annotations (1) Weakness SNOMED Code(s): 12290028 Code(s): R53.1 - WEAKNESS Status: Acute Current Visit: Yes (2) Palliative care status SNOMED Code(s): 555333562 Code(s): Z51.5 - ENCOUNTER FOR PALLIATIVE CARE Status: Acute Current Visit: Yes (3) CAP (community acquired pneumonia) SNOMED Code(s): 114358515 Code(s): J18.9 - PNEUMONIA, UNSPECIFIED ORGANISM Status: Acute Current Visit: Yes Qualifiers: Laterality: unspecified laterality Qualified Code(s): J18.9 - Pneumonia, unspecified organism (4) Headache SNOMED Code(s): 24564428 Code(s): R51 - HEADACHE Status: Acute Current Visit: No (5) Hypokalemia SNOMED Code(s): 92273577 Code(s): E87.6 - HYPOKALEMIA Status: Acute Current Visit: Yes - Problem List Review Problem List Initiated/Reviewed/Updated: Yes - My Orders Last 24 Hours: My Active Orders 09/26/18 09:15 Losartan [Cozaar] 100 mg PO DAILY 09/26/18 17:00 levoFLOXacin [Levaquin] 250 mg PO Q24H 09/27/18 09:00 Potassium Chloride [Klor-Con M20] 20 meq PO TID - Plan Plan:: 1. Increase potassium to 20 mg 3 times a day and recheck BMP in the a.m. 2. Anticipate discharge in the a.m. the patient has no regression. 3. Continue current care
[2018-09-27] MEDS: Albuterol/Ipratropium 3.0-0.5 MG/3 ML Neb Soln NEB SCH ×4 (10:00→20:49)
[2018-09-27] MEDS ORDERED: Furosemide 20 MG Tab PO ONE (11:26)
[2018-09-27] MEDS: Levofloxacin 250 MG Tab PO SCH (17:11)
[2018-09-27] MEDS: hydrOXYzine HCl 25 MG Tab PO PRN (22:00)
[2018-09-28] MEDS: Pantoprazole 40 MG Tab.CR PO SCH (05:20)
--- NOTE | 2018-09-28 07:28 | PCM.PN ---
- General Info Date of Service: 09/28/18 Admission Dx/Problem (Free Text): Patient states she's feeling good today other than she was up urinating a lot last night. She denies cough, shortness of breath but does feel weak. She's had some mouth pain. - Patient Data Vitals - Most Recent: Last Vital Signs Temp 98.3 F 09/28/18 00:00 Pulse 68 09/28/18 00:00 Resp 20 09/28/18 00:00 BP 134/85 09/28/18 00:00 Pulse Ox 96 09/28/18 00:00 Weight - Most Recent: 169 lb 4.8 oz Lab Results Last 24 Hours: Laboratory Results - last 24 hr 09/28/18 Range/Units 06:15 Sodium 141 (135-145) mmol/L Potassium 3.5 (3.5-5.3) mmol/L Chloride 105 (100-110) mmol/L Carbon Dioxide 30 (21-32) mmol/L BUN 21 H (7-18) mg/dL Creatinine 0.9 (0.55-1.02) mg/dL Est Cr Clr Drug Dosing 34.83 mL/min Estimated GFR (MDRD) 59 L (>60) BUN/Creatinine Ratio 23.3 H (9-20) Glucose 113 (80-116) mg/dL Calcium 7.5 L (8.6-10.2) mg/dL Cory Results Last 24 Hours: Microbiology 09/22/18 15:50 Aerobic Blood Culture - Final Blood - Venous - Lab Draw NO GROWTH AFTER 5 DAYS Anaerobic Blood Culture - Final NO GROWTH AFTER 5 DAYS 09/22/18 15:45 Aerobic Blood Culture - Final Blood - Venous NO GROWTH AFTER 5 DAYS Anaerobic Blood Culture - Final NO GROWTH AFTER 5 DAYS Med Orders - Current: Current Medications Acetaminophen (Tylenol Extra Strength) 500 mg PO Q4H PRN PRN Reason: Pain Last Admin: 09/27/18 08:28 Dose: 500 mg Albuterol/Ipratropium (Duoneb 3.0-0.5 Mg/3 Ml) 3 ml NEB QID [facility] Last Admin: 09/27/18 20:49 Dose: 3 ml Amlodipine Besylate (Norvasc) 5 mg PO DAILY [facility] Last Admin: 09/27/18 08:26 Dose: 5 mg Benzonatate (Tessalon Perles) 200 mg PO TID [facility] Last Admin: 09/27/18 20:53 Dose: 200 mg Celecoxib (Celebrex) 200 mg PO DAILY [facility] Last Admin: 09/27/18 08:23 Dose: 200 mg Donepezil HCl (Aricept) 10 mg PO DAILY [facility] Last Admin: 09/27/18 08:22 Dose: 10 mg Enoxaparin Sodium (Lovenox) 30 mg SUBCUT Q24H [facility] Last Admin: 09/27/18 08:24 Dose: 30 mg Fluticasone Propionate (Flonase) 0 gm NASBOTH BID PRN PRN Reason: Allergies Hydroxyzine HCl (Atarax) 25 mg PO BEDTIME PRN PRN Reason: Insomnia Last Admin: 09/27/18 22:00 Dose: 25 mg Levofloxacin (Levaquin) 250 mg PO Q24H [facility] Last Admin: 09/27/18 17:11 Dose: 250 mg Losartan Potassium (Cozaar) 100 mg PO DAILY [facility] Last Admin: 09/27/18 08:23 Dose: 100 mg Methimazole (Methimazole) 5 mg PO DAILY [facility] Last Admin: 09/27/18 08:25 Dose: 5 mg Nadolol (Naldol) 40 mg PO DAILY [facility] Last Admin: 09/27/18 08:26 Dose: 40 mg Nadolol (Naldol) 80 mg PO BEDTIME [facility] Last Admin: 09/27/18 20:51 Dose: 80 mg Non-Formulary Medication (Rizatriptan [Maxalt Electrical Test Engineer]) 10 mg PO ASDIRECTED PRN PRN Reason: MIGRAINE Pantoprazole Sodium (Protonix) 40 mg PO DAILY@0600 [facility] Last Admin: 09/28/18 05:20 Dose: 40 mg Potassium Chloride (Klor-Con M20) 20 meq PO TID [facility] Last Admin: 09/27/18 21:01 Dose: 20 meq Prednisone (Prednisone) 40 mg PO WITHBREAKFAST [facility] Last Admin: 09/27/18 08:21 Dose: 40 mg Saccharomyces Boulardii (Florastor) 250 mg PO BID [facility] Last Admin: 09/27/18 20:50 Dose: 250 mg Senna/Docusate Sodium (Senna Plus) 1 tab PO BEDTIME [facility] Last Admin: 09/27/18 20:54 Dose: 1 tab Sodium Chloride (Saline Flush) 10 ml FLUSH ASDIRECTED PRN PRN Reason: Keep Vein Open Last Admin: 09/26/18 09:44 Dose: 10 ml Tramadol HCl (Ultram) 50 mg PO DAILY PRN PRN Reason: Pain Discontinued Medications Furosemide (Lasix) 20 mg PO ONETIME ONE Stop: 09/27/18 11:27 Last Admin: 09/27/18 11:37 Dose: 20 mg Hydroxyzine HCl (Atarax) Confirm Administered Dose 25 mg .ROUTE .STK-MED ONE Stop: 09/23/18 01:31 Last Admin: 09/23/18 01:41 Dose: Not Given Levofloxacin/Dextrose 500 mg/ (Premix) 100 mls @ 100 mls/hr IV Q24H [facility] Last Admin: 09/22/18 16:07 Dose: 100 mls/hr Sodium Chloride (Normal Saline) 1,000 mls @ 100 mls/hr IV ASDIRECTED [facility] Last Admin: 09/23/18 04:55 Dose: 100 mls/hr Piperacillin Sod/Tazobactam (Sod 2.25 gm/ Sodium Chloride) 50 mls @ 100 mls/hr IV Q6H [facility] Last Admin: 09/26/18 09:21 Dose: 100 mls/hr Vancomycin HCl 1 gm/ Sodium (Chloride) 250 mls @ 250 mls/hr IV Q24H [facility] Last Admin: 09/25/18 11:36 Dose: 250 mls/hr Levofloxacin/Dextrose 250 mg/ (Premix) 50 mls @ 50 mls/hr IV Q24H [facility] Last Admin: 09/25/18 17:15 Dose: 50 mls/hr Iopamidol (Isovue-370 (76%)) 75 ml IV ONETIME ONE Stop: 09/22/18 17:32 Last Admin: 09/22/18 17:33 Dose: 75 ml Ketorolac Tromethamine (Toradol) 15 mg IVPUSH ONETIME ONE Stop: 09/23/18 11:46 Last Admin: 09/23/18 11:52 Dose: 15 mg Methylprednisolone Sodium Succinate (Solu-Medrol) 125 mg IVPUSH Q8H [facility] Last Admin: 09/26/18 01:39 Dose: 125 mg Metoclopramide HCl (Reglan) 10 mg IVPUSH ONETIME ONE Stop: 09/23/18 11:38 Last Admin: 09/23/18 11:51 Dose: 10 mg Nadolol (Naldol) 80 mg PO BEDTIME [facility] Non-Formulary Medication (Zoledronic Acid In Water [Reclast]) 5 mg IV Q360D [facility] Potassium Chloride (Klor-Con M20) 20 meq PO BEDTIME [facility] Last Admin: 09/26/18 20:19 Dose: 20 meq Vancomycin HCl (Pharmacy To Dose - Vancomycin) 1 dose .XX ASDIRECTED [facility] - Exam General: Alert, Oriented, Cooperative HEENT: Other (Mouth without any lesions.) Lungs: Clear to Auscultation, Normal Respiratory Effort - Problem List & Annotations (1) Weakness SNOMED Code(s): 45452706 Code(s): R53.1 - WEAKNESS Status: Acute Current Visit: Yes (2) Palliative care status SNOMED Code(s): 195375638 Code(s): Z51.5 - ENCOUNTER FOR PALLIATIVE CARE Status: Acute Current Visit: Yes (3) CAP (community acquired pneumonia) SNOMED Code(s): 304307492 Code(s): J18.9 - PNEUMONIA, UNSPECIFIED ORGANISM Status: Acute Current Visit: Yes Qualifiers: Laterality: unspecified laterality Qualified Code(s): J18.9 - Pneumonia, unspecified organism (4) Headache SNOMED Code(s): 66190247 Code(s): R51 - HEADACHE Status: Acute Current Visit: No (5) Hypokalemia SNOMED Code(s): 79355003 Code(s): E87.6 - HYPOKALEMIA Status: Acute Current Visit: Yes - Problem List Review Problem List Initiated/Reviewed/Updated: Yes - My Orders Last 24 Hours: My Active Orders 09/27/18 09:00 Potassium Chloride [Klor-Con M20] 20 meq PO TID - Plan Plan:: Discharge to home on prednisone taper, Levaquin, her normal home meds with PT/ OT and home health.
--- NOTE | 2018-09-28 07:35 | PCM.DCSUM1 ---
Discharge Summary - Hospital Course Free Text/Narrative:: Hospital course-patient was admitted and had a CAT scan that showed infiltrates. She was placed on vancomycin, Zosyn and Levaquin. She was also placed SoluMedrol 125 mg IV every 8 hours. Patient started improving the breathing became better. Switched her Solu-Medrol to prednisone and after 3 days sulcal Vanco, Zosyn and continued 250 mg of by mouth Levaquin a day per pharmacy recommendations. Patient had just a little elevated creatinine that got better with time. Potassium was low and she was given extra potassium. Patient can planed about mouth pain but there is no sores in the day before discharge had a little swelling of legs was given low but Lasix. She had no history of CHF. PT/OT saw her and felt she could do stairs and do everything she did do at home. We'll discharge her home on home health, PT/OT. Brief History: 87-year-old female who came in directly from the clinic because of. She had seen Dr. Beal last week and treated with Z-Tray for chest x-ray findings suggestive of pneumonia. She continues to cough and reports cough for at least 8 months,dry sometimes productive of yellow sputum. She has had recurrent treatments sinusitis with Dr Galarza, but with no improvement. She also endorses shortness of breath, fatigue, lack of appetite generalized malaise but she denies any fever or chills.She does not have any chest pain. She is previously healthy with exception of hypertension,a history of pulmonary embolism, and degenerative joint disease. Diagnosis: Stroke: No - Discharge Data Discharge Date: 09/28/18 Discharge Disposition: Home, W Home Health Agency 06 Condition: Good - Discharge Diagnosis/Problem(s) (1) Weakness SNOMED Code(s): 29909844 ICD Code: R53.1 - WEAKNESS Status: Acute Current Visit: Yes (2) Palliative care status SNOMED Code(s): 691024539 ICD Code: Z51.5 - ENCOUNTER FOR PALLIATIVE CARE Status: Acute Current Visit: Yes (3) CAP (community acquired pneumonia) SNOMED Code(s): 049241111 ICD Code: J18.9 - PNEUMONIA, UNSPECIFIED ORGANISM Status: Acute Current Visit: Yes Qualifiers: Laterality: unspecified laterality Qualified Code(s): J18.9 - Pneumonia, unspecified organism (4) Headache SNOMED Code(s): 19166263 ICD Code: R51 - HEADACHE Status: Acute Current Visit: No (5) Hypokalemia SNOMED Code(s): 02623292 ICD Code: E87.6 - HYPOKALEMIA Status: Acute Current Visit: Yes (6) Renal insufficiency SNOMED Code(s): 938658558, 946831558 ICD Code: N28.9 - DISORDER OF KIDNEY AND URETER, UNSPECIFIED Status: Acute Current Visit: Yes - Patient Summary/Data Consults: Consultations 09/25/18 08:40 OT Evaluation and Treatment [CONS] Routine Please Evaluate and Treat. OT Reason for Consult: Strengthening This query below is only for informational purposes and is not editable. Admission Diagnosis/Problem: Pneumonia PT Evaluation and Treatment [CONS] Routine Please Evaluate and Treat. PT Reason for Consult: Ambulation This query below is only for informational purposes and is not editable. Admission Diagnosis/Problem: Pneumonia - Patient Instructions Diet: Regular Diet as Tolerated Activity: As Tolerated Driving: Do Not Drive Showering/Bathing: May Shower Other/Special Instructions: 1. Recheck with Dr. Davison in 1 week. 2. Home health, PT, OT regarding disease teaching, home safety, medication management, strengthening, ADLs. - Discharge Plan Prescriptions/Med Rec: levoFLOXacin [Levaquin] 250 mg PO Q24H #6 tablet predniSONE 40 mg PO WITHBREAKFAST #6 tablet Home Medications: Home Meds Rizatriptan [Maxalt SQL DEVELOPER] 10 mg PO ASDIRECTED PRN 03/18/14 [History] Nadolol [Corgard] 40 mg PO DAILY 06/15/15 [History] Potassium Chloride [Klor-Con 10] 20 meq PO BEDTIME 06/15/15 [History] Zoledronic Acid in Water [Reclast] 5 mg IV Q360D 06/15/15 [History] Acetaminophen [Tylenol Extra Strength] 500 mg PO Q4H PRN 09/22/18 [History] Celecoxib 200 mg PO DAILY 09/22/18 [History] Donepezil HCl [Aricept] 10 mg PO DAILY 09/22/18 [History] Fluticasone Propionate [Flonase] 1 spray NASBOTH BID PRN 09/22/18 [History] Losartan [Cozaar] 100 mg PO DAILY 09/22/18 [History] Methimazole [Tapazole] 5 mg PO DAILY 09/22/18 [History] Nadolol [Corgard] 80 mg PO BEDTIME 09/22/18 [History] Pantoprazole Sodium [Protonix] 40 mg PO DAILY@0600 09/22/18 [History] Sennosides/Docusate Sodium [Senna-S] 1 tab PO BEDTIME 09/22/18 [History] amLODIPine [Norvasc] 5 mg PO DAILY 09/22/18 [History] traMADol [Ultram] 50 mg PO DAILY PRN 09/22/18 [History] levoFLOXacin [Levaquin] 250 mg PO Q24H #6 tablet 09/28/18 [Rx] predniSONE 40 mg PO WITHBREAKFAST #6 tablet 09/28/18 [Rx] Patient Handouts: Fall Prevention in Hospitals, Adult, Venous Thromboembolism Prevention, Community-Acquired Pneumonia, Adult, [id number] - Discharge Summary/Plan Comment DC Time >30 min.: Yes - Patient Data Vitals - Most Recent: Last Vital Signs Temp 98.3 F 09/28/18 00:00 Pulse 68 09/28/18 00:00 Resp 20 09/28/18 00:00 BP 134/85 09/28/18 00:00 Pulse Ox 96 09/28/18 00:00 Weight - Most Recent: 169 lb 4.8 oz Lab Results - Last 24 hrs: Laboratory Results - last 24 hr 09/28/18 Range/Units 06:15 Sodium 141 (135-145) mmol/L Potassium 3.5 (3.5-5.3) mmol/L Chloride 105 (100-110) mmol/L Carbon Dioxide 30 (21-32) mmol/L BUN 21 H (7-18) mg/dL Creatinine 0.9 (0.55-1.02) mg/dL Est Cr Clr Drug Dosing 34.83 mL/min Estimated GFR (MDRD) 59 L (>60) BUN/Creatinine Ratio 23.3 H (9-20) Glucose 113 (80-116) mg/dL Calcium 7.5 L (8.6-10.2) mg/dL ANA PAULA Results - Last 24 hrs: Microbiology 09/22/18 15:50 Aerobic Blood Culture - Final Blood - Venous - Lab Draw NO GROWTH AFTER 5 DAYS Anaerobic Blood Culture - Final NO GROWTH AFTER 5 DAYS 09/22/18 15:45 Aerobic Blood Culture - Final Blood - Venous NO GROWTH AFTER 5 DAYS Anaerobic Blood Culture - Final NO GROWTH AFTER 5 DAYS Med Orders - Current: Current Medications Acetaminophen (Tylenol Extra Strength) 500 mg PO Q4H PRN PRN Reason: Pain Last Admin: 09/27/18 08:28 Dose: 500 mg Albuterol/Ipratropium (Duoneb 3.0-0.5 Mg/3 Ml) 3 ml NEB QID [facility] Last Admin: 09/27/18 20:49 Dose: 3 ml Amlodipine Besylate (Norvasc) 5 mg PO DAILY [facility] Last Admin: 09/27/18 08:26 Dose: 5 mg Benzonatate (Tessalon Perles) 200 mg PO TID [facility] Last Admin: 09/27/18 20:53 Dose: 200 mg Celecoxib (Celebrex) 200 mg PO DAILY [facility] Last Admin: 09/27/18 08:23 Dose: 200 mg Donepezil HCl (Aricept) 10 mg PO DAILY [facility] Last Admin: 09/27/18 08:22 Dose: 10 mg Enoxaparin Sodium (Lovenox) 30 mg SUBCUT Q24H [facility] Last Admin: 09/27/18 08:24 Dose: 30 mg Fluticasone Propionate (Flonase) 0 gm NASBOTH BID PRN PRN Reason: Allergies Hydroxyzine HCl (Atarax) 25 mg PO BEDTIME PRN PRN Reason: Insomnia Last Admin: 09/27/18 22:00 Dose: 25 mg Levofloxacin (Levaquin) 250 mg PO Q24H [facility] Last Admin: 09/27/18 17:11 Dose: 250 mg Losartan Potassium (Cozaar) 100 mg PO DAILY [facility] Last Admin: 09/27/18 08:23 Dose: 100 mg Methimazole (Methimazole) 5 mg PO DAILY [facility] Last Admin: 09/27/18 08:25 Dose: 5 mg Nadolol (Naldol) 40 mg PO DAILY [facility] Last Admin: 09/27/18 08:26 Dose: 40 mg Nadolol (Naldol) 80 mg PO BEDTIME [facility] Last Admin: 09/27/18 20:51 Dose: 80 mg Non-Formulary Medication (Rizatriptan [Maxalt Human Resources Intern]) 10 mg PO ASDIRECTED PRN PRN Reason: MIGRAINE Pantoprazole Sodium (Protonix) 40 mg PO DAILY@0600 [facility] Last Admin: 09/28/18 05:20 Dose: 40 mg Potassium Chloride (Klor-Con M20) 20 meq PO TID [facility] Last Admin: 09/27/18 21:01 Dose: 20 meq Prednisone (Prednisone) 40 mg PO WITHBREAKFAST [facility] Last Admin: 09/27/18 08:21 Dose: 40 mg Saccharomyces Boulardii (Florastor) 250 mg PO BID [facility] Last Admin: 09/27/18 20:50 Dose: 250 mg Senna/Docusate Sodium (Senna Plus) 1 tab PO BEDTIME [facility] Last Admin: 09/27/18 20:54 Dose: 1 tab Sodium Chloride (Saline Flush) 10 ml FLUSH ASDIRECTED PRN PRN Reason: Keep Vein Open Last Admin: 09/26/18 09:44 Dose: 10 ml Tramadol HCl (Ultram) 50 mg PO DAILY PRN PRN Reason: Pain Discontinued Medications Furosemide (Lasix) 20 mg PO ONETIME ONE Stop: 09/27/18 11:27 Last Admin: 09/27/18 11:37 Dose: 20 mg Hydroxyzine HCl (Atarax) Confirm Administered Dose 25 mg .ROUTE .STK-MED ONE Stop: 09/23/18 01:31 Last Admin: 09/23/18 01:41 Dose: Not Given Levofloxacin/Dextrose 500 mg/ (Premix) 100 mls @ 100 mls/hr IV Q24H [facility] Last Admin: 09/22/18 16:07 Dose: 100 mls/hr Sodium Chloride (Normal Saline) 1,000 mls @ 100 mls/hr IV ASDIRECTED [facility] Last Admin: 09/23/18 04:55 Dose: 100 mls/hr Piperacillin Sod/Tazobactam (Sod 2.25 gm/ Sodium Chloride) 50 mls @ 100 mls/hr IV Q6H [facility] Last Admin: 09/26/18 09:21 Dose: 100 mls/hr Vancomycin HCl 1 gm/ Sodium (Chloride) 250 mls @ 250 mls/hr IV Q24H [facility] Last Admin: 09/25/18 11:36 Dose: 250 mls/hr Levofloxacin/Dextrose 250 mg/ (Premix) 50 mls @ 50 mls/hr IV Q24H [facility] Last Admin: 09/25/18 17:15 Dose: 50 mls/hr Iopamidol (Isovue-370 (76%)) 75 ml IV ONETIME ONE Stop: 09/22/18 17:32 Last Admin: 09/22/18 17:33 Dose: 75 ml Ketorolac Tromethamine (Toradol) 15 mg IVPUSH ONETIME ONE Stop: 09/23/18 11:46 Last Admin: 09/23/18 11:52 Dose: 15 mg Methylprednisolone Sodium Succinate (Solu-Medrol) 125 mg IVPUSH Q8H [facility] Last Admin: 09/26/18 01:39 Dose: 125 mg Metoclopramide HCl (Reglan) 10 mg IVPUSH ONETIME ONE Stop: 09/23/18 11:38 Last Admin: 09/23/18 11:51 Dose: 10 mg Nadolol (Naldol) 80 mg PO BEDTIME [facility] Non-Formulary Medication (Zoledronic Acid In Water [Reclast]) 5 mg IV Q360D [facility] Potassium Chloride (Klor-Con M20) 20 meq PO BEDTIME [facility] Last Admin: 09/26/18 20:19 Dose: 20 meq Vancomycin HCl (Pharmacy To Dose - Vancomycin) 1 dose .XX ASDIRECTED [facility]
[2018-09-28] MEDS ORDERED: Levofloxacin 250 MG Tab PO SCH (07:45)
[2018-09-28] MEDS: Donepezil 10 MG Tab PO SCH (08:46)
[2018-09-28] MEDS: Celecoxib 200 MG Cap PO SCH (08:46)
[2018-09-28] MEDS: Albuterol/Ipratropium 3.0-0.5 MG/3 ML Neb Soln NEB SCH ×2 (08:46→13:36)
[2018-09-28] MEDS: predniSONE 20 MG Tab PO SCH (08:46)
[2018-09-28] MEDS: Losartan 100 MG Tab PO SCH (08:47)
[2018-09-28] MEDS: Saccharomyces Boulardii (Probiotic) 250 MG Cap PO SCH (08:47)
[2018-09-28] MEDS: Methimazole 5 MG Tab PO SCH (08:49)
[2018-09-28] MEDS: Enoxaparin 30 MG/0.3 ML Syringe SUBCUT SCH (08:49)
[2018-09-28 08:50] VITALS: BP 157/72
[2018-09-28] MEDS: Benzonatate 100 MG Cap PO SCH (08:50)
[2018-09-28] MEDS: amLODIPine 5 MG Tab PO SCH (08:50)
[2018-09-28] MEDS: Potassium Chloride 20 MEQ Tab.ER PO SCH (08:53)
== END 2018-09-28 13:05 | disposition home health service (06) | DRG 195 ==
LOC: FB.MS 14:44
PROVIDERS: ADMIT Family Medicine; ATTEND Family Medicine
DX: J18.9 Pneumonia, unspecified organism (principal); Z51.5 Encounter for palliative care; I10 Essential (primary) hypertension; E87.6 Hypokalemia; G43.909 Migraine, unspecified, not intractable, without status migrainosus; Z86.718 Personal history of other venous thrombosis and embolism; Z86.711 Personal history of pulmonary embolism; Z85.3 Personal history of malignant neoplasm of breast; M15.9 Polyosteoarthritis, unspecified; M54.9 Dorsalgia, unspecified; G89.29 Other chronic pain; R53.1 Weakness; M85.80 Other specified disorders of bone density and structure, unspecified site; N28.9 Disorder of kidney and ureter, unspecified; K13.79 Other lesions of oral mucosa; Z96.649 Presence of unspecified artificial hip joint; Z96.659 Presence of unspecified artificial knee joint; Z96.619 Presence of unspecified artificial shoulder joint; Z88.5 Allergy status to narcotic agent; Z88.8 Allergy status to other drugs, medicaments and biological substances; Z91.048 Other nonmedicinal substance allergy status
CPT/HCPCS: 36415; 71046; 71260; 80048; 80053; 80202; 83880; 84443; 84484; 85025; 87040; 94150; 94640; 97116-GP; 97161-GP; 97166-GO; A9270-GY; J1650; J1885; J1956; J2543; J2765; J2930; J3370; J7030; J7050; J7620-GY; Q9967

== ENCOUNTER 2018-11-26 11:02 | Observation (INO) | payer MEDICARE, BC ==
[2018-11-26] MEDS ORDERED: Ondansetron 4 MG/2 ML SDV IV PRN (12:00)
[2018-11-26] MEDS ORDERED: Sodium Chloride 0.9% 10 ML Syringe FLUSH PRN (12:00)
[2018-11-26] MEDS ORDERED: Albuterol 8 GM Inhaler *PTOM INH PRN (12:05)
[2018-11-26] MEDS ORDERED: RIZATRIPTAN 10 MG PO PRN (12:05)
[2018-11-26] MEDS ORDERED: Acetaminophen 500 MG Tab PO PRN (12:05)
[2018-11-26] MEDS ORDERED: traMADol 50 MG Tab PO PRN (12:05)
[2018-11-26] MEDS ORDERED: Fluticasone Propionate Nasal Spray 16 GM Bottle *PTOM NASBOTH PRN (12:05)
[2018-11-26] MEDS ORDERED: [UNRECOGNIZED DRUG - OTHER] IV SCH (12:15)
[2018-11-26] MEDS ORDERED: ZOLEDRONIC ACID IV SCH (12:15)
--- NOTE | 2018-11-26 12:36 | PCM.HP.2 ---
H&P History of Present Illness - General Date of Service: 11/26/18 Admit Problem/Dx: Admission Diagnosis/Problem Admission Diagnosis/Problem Dehydration Source of Information: Patient History Limitations: Reports: No Limitations - History of Present Illness Initial Comments - Free Text/Narative: This is an 87-year-old female patient that presented to Dr. Davison [facility] because of persistent vomiting, nausea not able to eat or drink. It started the day before where she states she vomited straight from 1 PM to 4 PM. After that she was dry heaving. She thought maybe she was getting better but then in the morning which is today it got worse again. She denies fevers, chills. She has a cough that's mildly productive. She had pneumonia recently was told was getting better. She denies chest pain, shortness of breath, diarrhea. She says she had a normal BM yesterday. She stopped passing gas in the afternoon. She has abdominal pain but she is not sure if it's from vomiting and is generalized. 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 Patient also states she's had headache but no neck stiffness. abdomen Pain Score (Numeric/FACES): 3 - Related Data Allergies/Adverse Reactions: Allergies Allergy/AdvReac Type Severity Reaction Status Date / Time adhesive Allergy Hives Verified 11/26/18 11:49 aspirin Allergy Cannot Verified 11/26/18 11:49 Remember codeine Allergy Cannot Verified 11/26/18 11:49 Remember fentanyl Allergy Cannot Verified 11/26/18 11:49 Remember morphine Allergy Vomiting Verified 11/26/18 11:49 acetaminophen [From Percocet] AdvReac Nausea and Verified 11/26/18 11:49 Vomiting hydrocodone AdvReac Nausea and Verified 11/26/18 11:49 Vomiting hydromorphone HCl AdvReac Nausea and Verified 11/26/18 11:49 [From Dilaudid] Vomiting oxycodone HCl [From Percocet] AdvReac Nausea and Verified 11/26/18 11:49 Vomiting Home Medications: Home Meds Rizatriptan [Maxalt ANIMAL CARE SUPERVISOR] 10 mg PO ASDIRECTED PRN 03/18/14 [History] Nadolol [Corgard] 40 mg PO DAILY 06/15/15 [History] Potassium Chloride [Klor-Con 10] 20 meq PO BEDTIME 06/15/15 [History] Zoledronic Acid in Water [Reclast] 5 mg IV Q360D 06/15/15 [History] Acetaminophen [Tylenol Extra Strength] 500 mg PO Q4H PRN 09/22/18 [History] Celecoxib 200 mg PO DAILY 09/22/18 [History] Donepezil HCl [Aricept] 10 mg PO DAILY 09/22/18 [History] Fluticasone Propionate [Flonase] 1 spray NASBOTH BID PRN 09/22/18 [History] Losartan [Cozaar] 100 mg PO DAILY 09/22/18 [History] Methimazole [Tapazole] 5 mg PO DAILY 09/22/18 [History] Nadolol [Corgard] 80 mg PO BEDTIME 09/22/18 [History] Pantoprazole Sodium [Protonix] 40 mg PO DAILY@0600 09/22/18 [History] amLODIPine [Norvasc] 5 mg PO DAILY 09/22/18 [History] traMADol [Ultram] 50 mg PO DAILY PRN 09/22/18 [History] Albuterol [Ventolin HFA] 2 puff INH Q4H PRN 11/26/18 [History] Budesonide [Pulmicort] 0.5 mg LEIGH ANN BID 11/26/18 [History] Ferrous Sulfate 324 mg PO DAILY 11/26/18 [History] Fluticasone Furoate [Arnuity Ellipta] 1 puff INH DAILY 11/26/18 [History] Oxybutynin Chloride [Ditropan Xl] 10 mg PO BID 11/26/18 [History] Polyethylene Glycol 3350 [MiraLAX] 17 gm PO DAILY 11/26/18 [History] Sennosides/Docusate Sodium [Senexon-S Tablet] 1 tab PO DAILY 11/26/18 [History] Past Medical History HEENT History: Reports: Hard of Hearing, Impaired Vision Cardiovascular History: Reports: Heart Failure, Hypertension LAW WRITER History: Reports: Musculoskeletal History: Reports: Back Pain, Chronic, Osteoarthritis, Osteoporosis Neurological History: Reports: Migraines Endocrine/Metabolic History: Reports: Osteopenia Hematologic History: Reports: Other (See Below) 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 Oncologic (Cancer) History: Reports: Breast - Past Surgical History HEENT Surgical History: Reports: Cataract Surgery Musculoskeletal Surgical History: Reports: Hip Replacement, Knee Replacement, Shoulder Replacement Social & Family History - Family History Family Medical History: Unobtainable - Caffeine Use Caffeine Use: Reports: Coffee - Living Situation & Occupation Living situation: Reports: , Alone H&P Review of Systems - Review of Systems: Review Of Systems: See Below General: Reports: Weakness, Fatigue, Decreased Appetite HEENT: Reports: No Symptoms Pulmonary: Reports: Wheezing, Cough. Denies: Shortness of Breath Cardiovascular: Reports: No Symptoms Gastrointestinal: Reports: Abdominal Pain, Nausea, Vomiting. Denies: Black Stool, Bloody Stool, Constipation, Diarrhea, Difficulty Swallowing, Distension, Hematemesis, Hematochezia, Melena, Stool Incontinence Genitourinary: Reports: No Symptoms Musculoskeletal: Reports: No Symptoms Skin: Reports: No Symptoms Psychiatric: Reports: No Symptoms Neurological: Reports: No Symptoms Hematologic/Lymphatic: Reports: No Symptoms Immunologic: Reports: No Symptoms Exam - Exam Exam: See Below - Vital Signs Weight: 159 lb 14.4 oz - Exam General: Alert, Oriented, Cooperative, Mild Distress HEENT: Hearing Intact, Posterior Pharynx Clear. No: Mucosa Moist & [place] Neck: Supple, Trachea Midline Lungs: Clear to Auscultation, Normal Respiratory Effort. No: Crackles, Rales, Rhonchi Cardiovascular: Regular Rate, Regular Rhythm. No: Systolic Murmur, Diastolic Murmur GI/Abdominal Exam: Normal Bowel Sounds, Soft, Non-Tender, No Distention Back Exam: Normal Inspection Extremities: No Pedal Edema Skin: Warm, Dry, Intact Neurological: Normal Speech, Normal Tone Neuro Extensive - Mental Status: Alert, Oriented x3, Normal Cognition Neuro Extensive - Motor, Sensory, Reflexes: Normal Gait Psychiatric: Alert - Problem List (1) Vomiting SNOMED Code(s): 221472687 ICD Code: R11.10 - VOMITING, UNSPECIFIED Status: Acute Current Visit: Yes (2) Palliative care status SNOMED Code(s): 709042589 ICD Code: Z51.5 - ENCOUNTER FOR PALLIATIVE CARE Status: Acute Current Visit: Yes (3) Dehydration SNOMED Code(s): 18882456 ICD Code: E86.0 - DEHYDRATION Status: Acute Priority: High Current Visit: No (4) Weakness SNOMED Code(s): 56745440 ICD Code: R53.1 - WEAKNESS Status: Acute Current Visit: No Problem List Initiated/Reviewed/Updated: Yes Orders Last 24hrs: Active Orders 24 hr Category Date Time Status Patient Status [ADT] Routine ADT 11/26/18 12:00 Active EKG Documentation Completion [RC] ASDIRECTED Care 11/26/18 12:04 Active Height and Weight [RC] DAILY Care 11/26/18 12:00 Active Intake and Output [RC] QSHIFT Care 11/26/18 12:01 Active Oxygen Therapy [RC] PRN Care 11/26/18 12:00 Active Up With Assistance [RC] ASDIRECTED Care 11/26/18 12:00 Active VTE/DVT Education [RC] Per Unit Routine Care 11/26/18 12:00 Active Vital Signs [RC] Q4H Care 11/26/18 12:00 Active OT Evaluation and Treatment [CONS] Routine Cons 11/26/18 12:00 Active PT Evaluation and Treatment [CONS] Routine Cons 11/26/18 12:00 Active Clear Liquid Diet [DIET] Diet 11/26/18 Lunch Active Chest 2V [CR] Routine Exams 11/26/18 12:00 Ordered CBC WITH AUTO DIFF [HEME] Routine Lab 11/26/18 12:14 Received COMPREHENSIVE METABOLIC PN,CMP [CHEM] Routine Lab 11/26/18 12:14 Received TROPONIN I [CHEM] Routine Lab 11/26/18 12:14 Received UA W/MICROSCOPIC [URIN] Routine Lab 11/26/18 12:00 Ordered Acetaminophen [Tylenol Extra Strength] Med 11/26/18 12:05 Ordered 500 mg PO Q4H PRN Albuterol [Ventolin HFA] Med 11/26/18 12:05 Active 0 gm INH Q4H PRN Budesonide [Pulmicort] Med 11/26/18 21:00 Ordered 0.5 mg INH BID Celecoxib [CeleBREX] Med 11/27/18 09:00 Active 200 mg PO DAILY Docusate Sodium/Sennosides [Senna Plus] Med 11/27/18 09:00 Active 1 tab PO DAILY Donepezil [Aricept] Med 11/27/18 09:00 Ordered 10 mg PO DAILY Enoxaparin [Lovenox] Med 11/26/18 12:00 Ordered 30 mg SUBCUT Q24H Ferrous Sulfate [Ferrous Sulfate] Med 11/27/18 09:00 Ordered 324 mg PO DAILY Fluticasone Furoate [Arnuity Ellipta] Med 11/27/18 09:00 Active 1 puff INH DAILY Fluticasone Propionate [Flonase] Med 11/26/18 12:05 Active 0 gm NASBOTH BID PRN Losartan [Cozaar] Med 11/27/18 09:00 Ordered 100 mg PO DAILY Nadolol [Naldol] Med 11/27/18 09:00 Active 40 mg PO DAILY Nadolol [Naldol] Med 11/26/18 21:00 Active 80 mg PO BEDTIME Ondansetron [Zofran] Med 11/26/18 12:00 Active 4 mg IV Q4H PRN Oxybutynin Chloride [Ditropan Xl] Med 11/26/18 21:00 Ordered 10 mg PO BID Pantoprazole [ProTONIX] Med 11/27/18 06:00 Active 40 mg PO DAILY@0600 Polyethylene Glycol 3350 [MiraLAX] Med 11/27/18 09:00 Ordered 17 gm PO DAILY Potassium Chloride [Klor-Con 10] Med 11/26/18 21:00 Ordered 20 meq PO BEDTIME Rizatriptan [Maxalt ANIMAL CARE SUPERVISOR] Med 11/26/18 12:05 Ordered 10 mg PO ASDIRECTED PRN Sodium Chloride 0.9% [Normal Saline] 1,000 ml Med 11/26/18 12:00 Active IV ASDIRECTED Sodium Chloride 0.9% [Saline Flush] Med 11/26/18 12:00 Active 10 ml FLUSH ASDIRECTED PRN Zoledronic Acid in Water [Reclast] Med 11/26/18 12:15 Pending 5 mg IV Q360D amLODIPine [Norvasc] Med 11/27/18 09:00 Active 5 mg PO DAILY methIMAzole Med 11/27/18 09:00 Active 5 mg PO DAILY traMADol [Ultram] Med 11/26/18 12:05 Ordered 50 mg PO DAILY PRN Peripheral IV Insertion Adult [OM.PC] Routine Oth 11/26/18 12:00 Ordered Sequential Compression Device [OM.PC] Per Unit Routine Oth 11/26/18 12:01 Ordered Resuscitation Status Routine Resus Stat 11/26/18 12:00 Ordered EKG 12 Lead [EK] Routine Ther 08/21/19 12:00 Ordered Medication Orders Acetaminophen (Tylenol Extra Strength) 500 mg PO Q4H PRN PRN Reason: Pain Albuterol (Ventolin Hfa) 0 gm INH Q4H PRN PRN Reason: Dyspnea Amlodipine Besylate (Norvasc) 5 mg PO DAILY [facility] Budesonide (Pulmicort) 0.5 mg INH BID [facility] Celecoxib (Celebrex) 200 mg PO DAILY [facility] Donepezil HCl (Aricept) 10 mg PO DAILY [facility] Enoxaparin Sodium (Lovenox) 30 mg SUBCUT Q24H [facility] Fluticasone Propionate (Flonase) 0 gm NASBOTH BID PRN PRN Reason: Allergies Sodium Chloride (Normal Saline) 1,000 mls @ 125 mls/hr IV ASDIRECTED [facility] Losartan Potassium (Cozaar) 100 mg PO DAILY [facility] Methimazole (Methimazole) 5 mg PO DAILY [facility] Nadolol (Naldol) 40 mg PO DAILY [facility] Nadolol (Naldol) 80 mg PO BEDTIME [facility] Non-Formulary Medication (Ferrous Sulfate [Ferrous Sulfate]) 324 mg PO DAILY [facility] (Fluticasone Furoate [Arnuity Ellipta] 1 Puff) *Ptom 1 puff INH DAILY [facility] Non-Formulary Medication (Oxybutynin Chloride [Ditropan Xl]) 10 mg PO BID [facility] Non-Formulary Medication (Rizatriptan [Maxalt Associate Software Developer]) 10 mg PO ASDIRECTED PRN PRN Reason: MIGRAINE Non-Formulary Medication (Zoledronic Acid In Water [Reclast]) 5 mg IV Q360D [facility] Ondansetron HCl (Zofran) 4 mg IV Q4H PRN PRN Reason: Nausea/Vomiting Pantoprazole Sodium (Protonix) 40 mg PO DAILY@0600 [facility] Polyethylene Glycol (Miralax) 17 gm PO DAILY [facility] Potassium Chloride (Klor-Con 10) 20 meq PO BEDTIME [facility] Senna/Docusate Sodium (Senna Plus) 1 tab PO DAILY [facility] Sodium Chloride (Saline Flush) 10 ml FLUSH ASDIRECTED PRN PRN Reason: Keep Vein Open Tramadol HCl (Ultram) 50 mg PO DAILY PRN PRN Reason: Pain Assessment/Plan Comment:: 1. Admit for observation 2 Hydration with IV normal saline. 3. Zofran IV for nausea and vomiting 4. VTE prophylaxis with SCDs/Lovenox 5. Patient wants to be a DNR/DNI 6. Clear liquids 7. Up ad [place]. 8. PT/OT 9. CBC, CMP, troponin, UA with micro, chest x-ray, EKG
[2018-11-26] MEDS: Sodium Chloride 0.9% 1,000 ML IV SCH ×2 (12:44→20:45)
[2018-11-26] MEDS: Enoxaparin 40 MG/0.4 ML Syringe SUBCUT SCH (14:07)
--- NOTE | 2018-11-26 15:22 | CR ---
INDICATION: Cough with recent history of pneumonia. CHEST: PA and lateral views of the chest, 11/26/18, were compared with and 09/22/18, revealing further decrease in infiltration in the right upper lobe anterior basilar segment with a continued area of linear density in the left anterior mid lung field - anterior basilar segment left upper lobe, which may represent an area of subsegmental atelectasis. There is evidence of an axillary node dissection on the left with a total shoulder arthroplasty on the left also seen. A new acute process was not identified. The heart remains normal in size and shape. The aorta is tortuous with minimal calcification suggested in the arch. 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 There are also anterior hypertrophic changes in the upper thoracic spine of mild to moderate degree at the anterior vertebral body margins. Flattened diaphragm leaves, prominent AP diameter, and hyperaeration also suggests COPD. IMPRESSION: 1. Decreased infiltration in the right upper lobe anterior basilar segment. Residual is present, which could be at least partly fibrotic in nature. 2. Slightly more prominent linear change in the left anterior mid lung field - perihilar, which may represent subsegmental atelectasis, etiology indeterminate. 3. COPD. 4. ASD aorta. 5. 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 6. Axillary node dissection suggested on the left. 7. Total shoulder arthroplasty on the left. [facility]
[2018-11-26] MEDS ORDERED: cefTRIAXone 1 GM in Sodium Chloride 0.9% 50 ML IV SCH (18:00)
[2018-11-26] MEDS: OXYBUTYNIN CHLORIDE 10 MG PO SCH (20:16)
[2018-11-26] MEDS ORDERED: NADOLOL 40 MG PO SCH (21:00)
[2018-11-26] MEDS ORDERED: Potassium Chloride 10 MEQ Tab.ER PO SCH (21:00)
[2018-11-26] MEDS ORDERED: Budesonide 0.5 MG/2 ML Neb Susp INH SCH (21:00)
[2018-11-26] MEDS ORDERED: hydrOXYzine HCl 25 MG Tab PO ONE (22:14)
[2018-11-27] MEDS: Sodium Chloride 0.9% 1,000 ML IV SCH (04:37)
[2018-11-27] MEDS ORDERED: Pantoprazole 40 MG Tab.CR *PTOM PO SCH (06:00)
--- NOTE | 2018-11-27 07:42 | PCM.PN ---
- General Info Date of Service: 11/27/18 Admission Dx/Problem (Free Text): Patient just woke up. She says she has a backache today and she saw the lower abdominal pain. She denies cough, shortness of breath, dysuria, pyuria, hematuria, fevers or chills - Patient Data Vitals - Most Recent: Last Vital Signs Temp 98.9 F 11/27/18 04:00 Pulse 75 11/27/18 04:00 Resp 17 11/27/18 04:00 BP 151/80 H 11/27/18 04:00 Pulse Ox 97 11/27/18 04:00 Weight - Most Recent: 165 lb 3.2 oz I&O - Last 24 Hours: Intake & Output 11/26/18 11/27/18 11/27/18 22:59 06:59 14:59 Intake Total 1783 250 Output Total 800 Balance 1783 -550 Lab Results Last 24 Hours: Laboratory Results - last 24 hr 11/26/18 11/26/18 11/26/18 Range/Units 12:14 12:14 12:14 WBC 8.6 (4.5-12.0) X10-3/uL RBC 4.86 (3.23-5.20) x10(6)uL Hgb 15.0 (11.5-15.5) g/dL Hct 43.9 (30.0-51.3) % MCV 90.3 (80-96) fL MCH 31.0 (27.7-33.6) pg MCHC 34.3 (32.2-35.4) g/dL RDW 12.2 (11.5-15.5) % Plt Count 204 (125-369) X10(3)uL MPV 9.4 (7.4-10.4) fL Neut % (Auto) 79.0 (46-82) % Lymph % (Auto) 16.1 (13-37) % Moody % (Auto) 4.6 (4-12) % Eos % (Auto) 0 L (1.0-5.0) % Baso % (Auto) 0 (0-2) % Neut # (Auto) 6.8 (1.6-8.3) # Lymph # (Auto) 1.4 (0.6-5.0) # Moody # (Auto) 0.4 (0.0-1.3) # Eos # (Auto) 0.0 (0.0-0.8) # Baso # (Auto) 0.0 (0.0-0.2) # Sodium 136 (135-145) mmol/L Potassium 3.4 L (3.5-5.3) mmol/L Chloride 101 (100-110) mmol/L Carbon Dioxide 25 (21-32) mmol/L BUN 20 H (7-18) mg/dL Creatinine 1.0 (0.55-1.02) mg/dL Est Cr Clr Drug Dosing 34.23 mL/min Estimated GFR (MDRD) 52 L (>60) BUN/Creatinine Ratio 20.0 (9-20) Glucose 154 H (80-116) mg/dL Calcium 9.0 (8.6-10.2) mg/dL Total Bilirubin 0.6 (0.1-1.3) mg/dL AST 22 D (5-25) IU/L ALT 30 D (12-36) U/L Alkaline Phosphatase 65 (56-112) IU/L Troponin I < 0.017 L (<0.017-0.056) ng/mL Total Protein 7.7 (6.0-8.0) g/dL Albumin 3.1 L (3.2-4.6) g/dL Globulin 4.6 g/dL Albumin/Globulin Ratio 0.7 Urine Color (YELLOW) Urine Appearance (CLEAR) Urine pH (5.0-6.5) Ur Specific Delong (1.010-1.025) Urine Protein (NEGATIVE) mg/dL Urine Glucose (UA) (NORMAL) mg/dL Urine Ketones (NEGATIVE) mg/dL Urine Occult Blood (NEGATIVE) Urine Nitrite (NEGATIVE) Urine Bilirubin (NEGATIVE) Urine Urobilinogen (NEGATIVE) mg/dL Ur Leukocyte Esterase (NEGATIVE) Urine RBC (0-5) Urine WBC (0-5) Ur Squamous Epith Cells (NS,R,O) Urine Bacteria (NS) Urine Mucus (NS) 11/26/18 Range/Units 16:35 WBC (4.5-12.0) X10-3/uL RBC (3.23-5.20) x10(6)uL Hgb (11.5-15.5) g/dL Hct (30.0-51.3) % MCV (80-96) fL MCH (27.7-33.6) pg MCHC (32.2-35.4) g/dL RDW (11.5-15.5) % Plt Count (125-369) X10(3)uL MPV (7.4-10.4) fL Neut % (Auto) (46-82) % Lymph % (Auto) (13-37) % Moody % (Auto) (4-12) % Eos % (Auto) (1.0-5.0) % Baso % (Auto) (0-2) % Neut # (Auto) (1.6-8.3) # Lymph # (Auto) (0.6-5.0) # Moody # (Auto) (0.0-1.3) # Eos # (Auto) (0.0-0.8) # Baso # (Auto) (0.0-0.2) # Sodium (135-145) mmol/L Potassium (3.5-5.3) mmol/L Chloride (100-110) mmol/L Carbon Dioxide (21-32) mmol/L BUN (7-18) mg/dL Creatinine (0.55-1.02) mg/dL Est Cr Clr Drug Dosing mL/min Estimated GFR (MDRD) (>60) BUN/Creatinine Ratio (9-20) Glucose (80-116) mg/dL Calcium (8.6-10.2) mg/dL Total Bilirubin (0.1-1.3) mg/dL AST (5-25) IU/L ALT (12-36) U/L Alkaline Phosphatase (56-112) IU/L Troponin I (<0.017-0.056) ng/mL Total Protein (6.0-8.0) g/dL Albumin (3.2-4.6) g/dL Globulin g/dL Albumin/Globulin Ratio Urine Color Yellow (YELLOW) Urine Appearance Cloudy (CLEAR) Urine pH 6.5 (5.0-6.5) Ur Specific [place] 1.010 (1.010-1.025) Urine Protein Trace (NEGATIVE) mg/dL Urine Glucose (UA) Normal (NORMAL) mg/dL Urine Ketones Negative (NEGATIVE) mg/dL Urine Occult Blood Large (NEGATIVE) Urine Nitrite Negative (NEGATIVE) Urine Bilirubin Negative (NEGATIVE) Urine Urobilinogen Normal (NEGATIVE) mg/dL Ur Leukocyte Esterase Moderate (NEGATIVE) Urine RBC 10-20 H (0-5) Urine WBC 30-40 H (0-5) Ur Squamous Epith Cells Occasional (NS,R,O) Urine Bacteria Moderate H (NS) Urine Mucus Few H (NS) Med Orders - Current: Current Medications Acetaminophen (Tylenol Extra Strength) 500 mg PO Q4H PRN PRN Reason: Pain Albuterol (Ventolin Hfa) 0 gm INH Q4H PRN PRN Reason: Dyspnea Amlodipine Besylate (Norvasc) 5 mg PO DAILY [facility] Celecoxib (Celebrex) 200 mg PO DAILY [facility] Ciprofloxacin (Ciprofloxacin Hcl) 500 mg PO BID [facility] Donepezil HCl (Aricept) 10 mg PO DAILY [facility] Enoxaparin Sodium (Lovenox) 40 mg SUBCUT Q24H [facility] Last Admin: 11/26/18 14:07 Dose: 40 mg Fluticasone Propionate (Flonase) 0 gm NASBOTH BID PRN PRN Reason: Allergies Losartan Potassium (Cozaar) 100 mg PO DAILY [facility] Methimazole (Methimazole) 5 mg PO DAILY [facility] Nadolol (Naldol) 40 mg PO DAILY [facility] Nadolol (Naldol) 80 mg PO BEDTIME [facility] Last Admin: 11/26/18 20:14 Dose: 80 mg Ferrous Gluconate (27mg) 0 mg PO DAILY [facility] (Fluticasone Furoate [Arnuity Ellipta] 1 Puff) *Ptom 1 puff INH DAILY [facility] (Oxybutynin Chloride [Ditropan Xl] 10 Mg ) *Ptom 0 mg PO BID [facility] Last Admin: 11/26/18 20:16 Dose: 10 mg Non-Formulary Medication (Rizatriptan [Maxalt Design Supervisor]) 10 mg PO ASDIRECTED PRN PRN Reason: MIGRAINE Pantoprazole Sodium (Protonix) 40 mg PO DAILY@0600 [facility] Last Admin: 11/27/18 05:58 Dose: 40 mg Polyethylene Glycol (Miralax) 17 gm PO DAILY PRN PRN Reason: CONSTIPATION Potassium Chloride (Klor-Con 10) 20 meq PO BEDTIME [facility] Senna/Docusate Sodium (Senna Plus) 1 tab PO DAILY [facility] Sodium Chloride (Saline Flush) 10 ml FLUSH ASDIRECTED PRN PRN Reason: Keep Vein Open Last Admin: 11/26/18 12:30 Dose: 10 ml Tramadol HCl (Ultram) 50 mg PO DAILY PRN PRN Reason: Pain Discontinued Medications Hydroxyzine HCl (Atarax) 25 mg PO ONETIME ONE Stop: 11/26/18 22:15 Last Admin: 11/26/18 22:54 Dose: 25 mg Sodium Chloride (Normal Saline) 1,000 mls @ 125 mls/hr IV ASDIRECTED [facility] Last Admin: 11/27/18 04:37 Dose: 125 mls/hr Ceftriaxone Sodium 1 gm/ (Sodium Chloride) 50 mls @ 200 mls/hr IV Q24H [facility] Last Admin: 11/26/18 17:50 Dose: 200 mls/hr Ondansetron HCl (Zofran) 4 mg IV Q4H PRN PRN Reason: Nausea/Vomiting Last Admin: 11/26/18 12:46 Dose: 4 mg - Exam General: Oriented, Cooperative Lungs: Clear to Auscultation, Normal Respiratory Effort GI/Abdominal Exam: Normal Bowel Sounds, Soft, Tender (Suprapubic). No: Guarding , Rigid, Rebound Extremities: Normal Inspection, No Pedal Edema Psy/Mental Status: Alert, Normal Affect, Normal Mood - Problem List & Annotations (1) Vomiting SNOMED Code(s): 316477994 Code(s): R11.10 - VOMITING, UNSPECIFIED Status: Acute Current Visit: Yes (2) Palliative care status SNOMED Code(s): 020209931 Code(s): Z51.5 - ENCOUNTER FOR PALLIATIVE CARE Status: Acute Current Visit: Yes (3) Dehydration SNOMED Code(s): 77812437 Code(s): E86.0 - DEHYDRATION Status: Acute Priority: High Current Visit : No (4) Weakness SNOMED Code(s): 80732392 Code(s): R53.1 - WEAKNESS Status: Acute Current Visit: No (5) UTI (urinary tract infection) SNOMED Code(s): 67825987 Code(s): N39.0 - URINARY TRACT INFECTION, SITE NOT SPECIFIED Status: Acute Current Visit: Yes - Problem List Review Problem List Initiated/Reviewed/Updated: Yes - My Orders Last 24 Hours: My Active Orders 11/26/18 12:00 Patient Status [ADT] Routine Oxygen Therapy [RC] PRN Up With Assistance [RC] ,, Vital Signs [RC] QSHIFT Sodium Chloride 0.9% [Saline Flush] 10 ml FLUSH ASDIRECTED PRN Peripheral IV Insertion Adult [OM.PC] Routine Resuscitation Status Routine EKG 12 Lead [EK] Routine 11/26/18 12:01 Sequential Compression Device [OM.PC] Per Unit Routine 11/26/18 12:05 Acetaminophen [Tylenol Extra Strength] 500 mg PO Q4H PRN Albuterol [Ventolin HFA] 0 gm INH Q4H PRN Fluticasone Propionate [Flonase] 0 gm NASBOTH BID PRN Rizatriptan [Maxalt [employer]OTS [employer]OES SUPERVISOR] 10 mg PO ASDIRECTED PRN traMADol [Ultram] 50 mg PO DAILY PRN 11/26/18 13:00 Enoxaparin [Lovenox] 40 mg SUBCUT Q24H 11/26/18 16:35 CULTURE URINE [RM] Routine 11/26/18 21:00 Nadolol [Naldol] 80 mg PO BEDTIME Oxybutynin Chloride [Ditropan Xl] 0 mg PO BID Potassium Chloride [Klor-Con 10] 20 meq PO BEDTIME 11/27/18 06:00 Pantoprazole [ProTONIX] 40 mg PO DAILY@0600 11/27/18 07:37 Convert IV to Saline Lock [OM.PC] Routine 11/27/18 09:00 Celecoxib [CeleBREX] 200 mg PO DAILY Ciprofloxacin [Ciprofloxacin HCl] 500 mg PO BID Docusate Sodium/Sennosides [Senna Plus] 1 tab PO DAILY Donepezil [Aricept] 10 mg PO DAILY Ferrous Sulfate [Ferrous Sulfate] 0 mg PO DAILY Fluticasone Furoate [Arnuity Ellipta] 1 puff INH DAILY Losartan [Cozaar] 100 mg PO DAILY Nadolol [Naldol] 40 mg PO DAILY Polyethylene Glycol 3350 [MiraLAX] 17 gm PO DAILY PRN amLODIPine [Norvasc] 5 mg PO DAILY methIMAzole 5 mg PO DAILY 11/27/18 Breakfast Regular Diet [DIET] - Plan Plan:: 1. DC Rocephin start Cipro 500 mg by mouth twice a day 2. Up ambulating 3. DC IV fluids and saline lock IV 4. Vitals every shift. 5. DC I's and O's and daily weights. 6. DC PT/OT. 7. The patient does well after her meal today. She may looked be discharged with home health.
[2018-11-27] MEDS ORDERED: Docusate Sodium/Sennosides 50-8.6 MG Tab *PTOM PO SCH (09:00)
[2018-11-27] MEDS ORDERED: Ciprofloxacin 500 MG Tab PO SCH (09:00)
[2018-11-27] MEDS ORDERED: Polyethylene Glycol 3350 Powder 17 GM Packet PO PRN (09:00)
[2018-11-27] MEDS ORDERED: Donepezil 10 MG Tab *PTOM PO SCH (09:00)
[2018-11-27] MEDS ORDERED: CELECOXIB 200 MG PO SCH (09:00)
[2018-11-27] MEDS ORDERED: NADOLOL 40 MG PO SCH (09:00)
[2018-11-27] MEDS ORDERED: amLODIPine 5 MG Tab *PTOM PO SCH (09:00)
[2018-11-27] MEDS ORDERED: FERROUS GLUCONATE 27 MG PO SCH (09:00)
[2018-11-27] MEDS ORDERED: METHIMAZOLE 5 MG PO SCH (09:00)
[2018-11-27] MEDS ORDERED: Losartan 100 MG Tab *PTOM PO SCH (09:00)
[2018-11-27] MEDS: OXYBUTYNIN CHLORIDE 10 MG PO SCH (09:04)
[2018-11-27 09:11] VITALS: BP 160/74
--- NOTE | 2018-11-27 09:15 | PCM.DCSUM1 ---
Discharge Summary - Hospital Course Free Text/Narrative:: Hospital course-patient had troponin, EKG, chest x-ray and CBC all were normal. Potassium was just slightly decreased. Urine was positive for UTI. She is given Rocephin, IV fluids and Zofran and a clear liquid diet. By 6 or 7 hours later her nausea and vomiting gone away so we started regular diet which she tolerated. By the next morning patient felt much better she had no fevers, chills, nausea, vomiting. She has no suprapubic tenderness but no flank pain which she never had. Changed Rocephin to Cipro 500 by mouth twice a day and Septra IV fluids. She did well so discharge home on home health, PT/OT. Brief History: This is an 87-year-old female patient that presented to Dr. Davison [facility] because of persistent vomiting, nausea not able to eat or drink. It started the day before where she states she vomited straight from 1 PM to 4 PM. After that she was dry heaving. She thought maybe she was getting better but then in the morning which is today it got worse again. She denies fevers, chills. She has a cough that's mildly productive. She had pneumonia recently was told was getting better. She denies chest pain, shortness of breath, diarrhea. She says she had a normal BM yesterday. She stopped passing gas in the afternoon. She has abdominal pain but she is not sure if it's from vomiting and is generalized. 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 Patient also states she's had headache but no neck stiffness. Diagnosis: Stroke: No - Discharge Data Discharge Date: 11/27/18 Discharge Disposition: Home, W Home Health Agency 06 Condition: Good - Discharge Diagnosis/Problem(s) (1) Vomiting SNOMED Code(s): 175715045 ICD Code: R11.10 - VOMITING, UNSPECIFIED Status: Acute Current Visit: Yes (2) Palliative care status SNOMED Code(s): 051836663 ICD Code: Z51.5 - ENCOUNTER FOR PALLIATIVE CARE Status: Acute Current Visit: Yes (3) Dehydration SNOMED Code(s): 40177851 ICD Code: E86.0 - DEHYDRATION Status: Acute Priority: High Current Visit: No (4) Weakness SNOMED Code(s): 05506329 ICD Code: R53.1 - WEAKNESS Status: Acute Current Visit: No (5) UTI (urinary tract infection) SNOMED Code(s): 59689366 ICD Code: N39.0 - URINARY TRACT INFECTION, SITE NOT SPECIFIED Status: Acute Current Visit: Yes - Patient Instructions Diet: Regular Diet as Tolerated Activity: As Tolerated Showering/Bathing: May Shower Notify Provider of: Fever, Nausea and/or Vomiting Other/Special Instructions: 1. Recheck with Dr. Davison 1 week. 2. Home health/PT/OT for strengthening, ADLs, medication safety, home safety. - Discharge Plan Prescriptions/Med Rec: Ciprofloxacin [Ciprofloxacin HCl] 500 mg PO BID #14 tablet Home Medications: Home Meds Rizatriptan [Maxalt T[employer] SH[employer] SUPERVISOR] 10 mg PO ASDIRECTED PRN 03/18/14 [History] Nadolol [Corgard] 40 mg PO DAILY 06/15/15 [History] Potassium Chloride [Klor-Con 10] 20 meq PO BEDTIME 06/15/15 [History] Zoledronic Acid in Water [Reclast] 5 mg IV Q360D 06/15/15 [History] Acetaminophen [Tylenol Extra Strength] 500 mg PO Q4H PRN 09/22/18 [History] Celecoxib 200 mg PO DAILY 09/22/18 [History] Donepezil HCl [Aricept] 10 mg PO DAILY 09/22/18 [History] Fluticasone Propionate [Flonase] 1 spray NASBOTH BID PRN 09/22/18 [History] Losartan [Cozaar] 100 mg PO DAILY 09/22/18 [History] Methimazole [Tapazole] 5 mg PO DAILY 09/22/18 [History] Nadolol [Corgard] 80 mg PO BEDTIME 09/22/18 [History] Pantoprazole Sodium [Protonix] 40 mg PO DAILY@0600 09/22/18 [History] amLODIPine [Norvasc] 5 mg PO DAILY 09/22/18 [History] traMADol [Ultram] 50 mg PO DAILY PRN 09/22/18 [History] Albuterol [Ventolin HFA] 2 puff INH Q4H PRN 11/26/18 [History] Budesonide [Pulmicort] 0.5 mg LEIGH ANN BID 11/26/18 [History] Ferrous Sulfate 324 mg PO DAILY 11/26/18 [History] Fluticasone Furoate [Arnuity Ellipta] 1 puff INH DAILY 11/26/18 [History] Oxybutynin Chloride [Ditropan Xl] 10 mg PO BID 11/26/18 [History] Polyethylene Glycol 3350 [MiraLAX] 17 gm PO DAILY 11/26/18 [History] Sennosides/Docusate Sodium [Senexon-S Tablet] 1 tab PO DAILY 11/26/18 [History] Ciprofloxacin [Ciprofloxacin HCl] 500 mg PO BID #14 tablet 11/27/18 [Rx] Patient Handouts: Fall Prevention in Hospitals, Adult, Venous Thromboembolism Prevention - Discharge Summary/Plan Comment DC Time >30 min.: No - Patient Data Vitals - Most Recent: Last Vital Signs Temp 98.9 F 11/27/18 04:00 Pulse 76 11/27/18 09:06 Resp 17 11/27/18 04:00 BP 160/74 H 11/27/18 09:06 Pulse Ox 97 11/27/18 04:00 Weight - Most Recent: 165 lb 3.2 oz I&O - Last 24 hours: Intake & Output 11/26/18 11/27/18 11/27/18 22:59 06:59 14:59 Intake Total 1783 250 Output Total 800 Balance 1783 -550 Lab Results - Last 24 hrs: Laboratory Results - last 24 hr 11/26/18 11/26/18 11/26/18 Range/Units 12:14 12:14 12:14 WBC 8.6 (4.5-12.0) X10-3/uL RBC 4.86 (3.23-5.20) x10(6)uL Hgb 15.0 (11.5-15.5) g/dL Hct 43.9 (30.0-51.3) % MCV 90.3 (80-96) fL MCH 31.0 (27.7-33.6) pg MCHC 34.3 (32.2-35.4) g/dL RDW 12.2 (11.5-15.5) % Plt Count 204 (125-369) X10(3)uL MPV 9.4 (7.4-10.4) fL Neut % (Auto) 79.0 (46-82) % Lymph % (Auto) 16.1 (13-37) % [place] % (Auto) 4.6 (4-12) % Eos % (Auto) 0 L (1.0-5.0) % Baso % (Auto) 0 (0-2) % Neut # (Auto) 6.8 (1.6-8.3) # Lymph # (Auto) 1.4 (0.6-5.0) # [place] # (Auto) 0.4 (0.0-1.3) # Eos # (Auto) 0.0 (0.0-0.8) # Baso # (Auto) 0.0 (0.0-0.2) # Sodium 136 (135-145) mmol/L Potassium 3.4 L (3.5-5.3) mmol/L Chloride 101 (100-110) mmol/L Carbon Dioxide 25 (21-32) mmol/L BUN 20 H (7-18) mg/dL Creatinine 1.0 (0.55-1.02) mg/dL Est Cr Clr Drug Dosing 34.23 mL/min Estimated GFR (MDRD) 52 L (>60) BUN/Creatinine Ratio 20.0 (9-20) Glucose 154 H (80-116) mg/dL Calcium 9.0 (8.6-10.2) mg/dL Total Bilirubin 0.6 (0.1-1.3) mg/dL AST 22 D (5-25) IU/L ALT 30 D (12-36) U/L Alkaline Phosphatase 65 (56-112) IU/L Troponin I < 0.017 L (<0.017-0.056) ng/mL Total Protein 7.7 (6.0-8.0) g/dL Albumin 3.1 L (3.2-4.6) g/dL Globulin 4.6 g/dL Albumin/Globulin Ratio 0.7 Urine Color (YELLOW) Urine Appearance (CLEAR) Urine pH (5.0-6.5) Ur Specific Pierce (1.010-1.025) Urine Protein (NEGATIVE) mg/dL Urine Glucose (UA) (NORMAL) mg/dL Urine Ketones (NEGATIVE) mg/dL Urine Occult Blood (NEGATIVE) Urine Nitrite (NEGATIVE) Urine Bilirubin (NEGATIVE) Urine Urobilinogen (NEGATIVE) mg/dL Ur Leukocyte Esterase (NEGATIVE) Urine RBC (0-5) Urine WBC (0-5) Ur Squamous Epith Cells (NS,R,O) Urine Bacteria (NS) Urine Mucus (NS) 11/26/18 Range/Units 16:35 WBC (4.5-12.0) X10-3/uL RBC (3.23-5.20) x10(6)uL Hgb (11.5-15.5) g/dL Hct (30.0-51.3) % MCV (80-96) fL MCH (27.7-33.6) pg MCHC (32.2-35.4) g/dL RDW (11.5-15.5) % Plt Count (125-369) X10(3)uL MPV (7.4-10.4) fL Neut % (Auto) (46-82) % Lymph % (Auto) (13-37) % [place] % (Auto) (4-12) % Eos % (Auto) (1.0-5.0) % Baso % (Auto) (0-2) % Neut # (Auto) (1.6-8.3) # Lymph # (Auto) (0.6-5.0) # [place] # (Auto) (0.0-1.3) # Eos # (Auto) (0.0-0.8) # Baso # (Auto) (0.0-0.2) # Sodium (135-145) mmol/L Potassium (3.5-5.3) mmol/L Chloride (100-110) mmol/L Carbon Dioxide (21-32) mmol/L BUN (7-18) mg/dL Creatinine (0.55-1.02) mg/dL Est Cr Clr Drug Dosing mL/min Estimated GFR (MDRD) (>60) BUN/Creatinine Ratio (9-20) Glucose (80-116) mg/dL Calcium (8.6-10.2) mg/dL Total Bilirubin (0.1-1.3) mg/dL AST (5-25) IU/L ALT (12-36) U/L Alkaline Phosphatase (56-112) IU/L Troponin I (<0.017-0.056) ng/mL Total Protein (6.0-8.0) g/dL Albumin (3.2-4.6) g/dL Globulin g/dL Albumin/Globulin Ratio Urine Color Yellow (YELLOW) Urine Appearance Cloudy (CLEAR) Urine pH 6.5 (5.0-6.5) Ur Specific Pierce 1.010 (1.010-1.025) Urine Protein Trace (NEGATIVE) mg/dL Urine Glucose (UA) Normal (NORMAL) mg/dL Urine Ketones Negative (NEGATIVE) mg/dL Urine Occult Blood Large (NEGATIVE) Urine Nitrite Negative (NEGATIVE) Urine Bilirubin Negative (NEGATIVE) Urine Urobilinogen Normal (NEGATIVE) mg/dL Ur Leukocyte Esterase Moderate (NEGATIVE) Urine RBC 10-20 H (0-5) Urine WBC 30-40 H (0-5) Ur Squamous Epith Cells Occasional (NS,R,O) Urine Bacteria Moderate H (NS) Urine Mucus Few H (NS) Med Orders - Current: Current Medications Acetaminophen (Tylenol Extra Strength) 500 mg PO Q4H PRN PRN Reason: Pain Albuterol (Ventolin Hfa) 0 gm INH Q4H PRN PRN Reason: Dyspnea Amlodipine Besylate (Norvasc) 5 mg PO DAILY [facility] Last Admin: 11/27/18 09:06 Dose: 5 mg Celecoxib (Celebrex) 200 mg PO DAILY [facility] Last Admin: 11/27/18 09:06 Dose: 200 mg Ciprofloxacin (Ciprofloxacin Hcl) 500 mg PO BID [facility] Donepezil HCl (Aricept) 10 mg PO DAILY [facility] Last Admin: 11/27/18 09:08 Dose: 10 mg Enoxaparin Sodium (Lovenox) 40 mg SUBCUT Q24H [facility] Last Admin: 11/26/18 14:07 Dose: 40 mg Fluticasone Propionate (Flonase) 0 gm NASBOTH BID PRN PRN Reason: Allergies Last Admin: 11/27/18 09:09 Dose: 1 spray Losartan Potassium (Cozaar) 100 mg PO DAILY [facility] Last Admin: 11/27/18 09:05 Dose: 100 mg Methimazole (Methimazole) 5 mg PO DAILY [facility] Last Admin: 11/27/18 09:08 Dose: 5 mg Nadolol (Naldol) 40 mg PO DAILY [facility] Last Admin: 11/27/18 09:06 Dose: 40 mg Nadolol (Naldol) 80 mg PO BEDTIME [facility] Last Admin: 11/26/18 20:14 Dose: 80 mg Ferrous Gluconate (27mg) 0 mg PO DAILY [facility] Last Admin: 11/27/18 09:07 Dose: 27 mg (Fluticasone Furoate [Arnuity Ellipta] 1 Puff) *Ptom 1 puff INH DAILY [facility] Last Admin: 11/27/18 09:10 Dose: 1 puff (Oxybutynin Chloride [Ditropan Xl] 10 Mg ) *Ptom 0 mg PO BID [facility] Last Admin: 11/27/18 09:04 Dose: 10 mg Non-Formulary Medication (Rizatriptan [Maxalt Equipment Service Lead]) 10 mg PO ASDIRECTED PRN PRN Reason: MIGRAINE Pantoprazole Sodium (Protonix) 40 mg PO DAILY@0600 [facility] Last Admin: 11/27/18 05:58 Dose: 40 mg Polyethylene Glycol (Miralax) 17 gm PO DAILY PRN PRN Reason: CONSTIPATION Potassium Chloride (Klor-Con 10) 20 meq PO BEDTIME [facility] Senna/Docusate Sodium (Senna Plus) 1 tab PO DAILY [facility] Last Admin: 11/27/18 09:07 Dose: 1 tab Sodium Chloride (Saline Flush) 10 ml FLUSH ASDIRECTED PRN PRN Reason: Keep Vein Open Last Admin: 11/26/18 12:30 Dose: 10 ml Tramadol HCl (Ultram) 50 mg PO DAILY PRN PRN Reason: Pain Discontinued Medications Hydroxyzine HCl (Atarax) 25 mg PO ONETIME ONE Stop: 11/26/18 22:15 Last Admin: 11/26/18 22:54 Dose: 25 mg Sodium Chloride (Normal Saline) 1,000 mls @ 125 mls/hr IV ASDIRECTED [facility] Last Admin: 11/27/18 04:37 Dose: 125 mls/hr Ceftriaxone Sodium 1 gm/ (Sodium Chloride) 50 mls @ 200 mls/hr IV Q24H [facility] Last Admin: 11/26/18 17:50 Dose: 200 mls/hr Ondansetron HCl (Zofran) 4 mg IV Q4H PRN PRN Reason: Nausea/Vomiting Last Admin: 11/26/18 12:46 Dose: 4 mg
[2018-11-27] MEDS: Enoxaparin 40 MG/0.4 ML Syringe SUBCUT SCH (13:46)
== END 2018-11-27 16:50 | disposition home health service (06) ==
LOC: FB.MS 11:14
PROVIDERS: ADMIT Family Medicine; ATTEND Family Medicine
DX: E86.0 Dehydration (principal); N39.0 Urinary tract infection, site not specified; R11.2 Nausea with vomiting, unspecified; R53.1 Weakness; R10.84 Generalized abdominal pain; I11.0 Hypertensive heart disease with heart failure; I50.9 Heart failure, unspecified; Z51.5 Encounter for palliative care; Z88.8 Allergy status to other drugs, medicaments and biological substances; Z88.5 Allergy status to narcotic agent; Z88.6 Allergy status to analgesic agent; Z91.048 Other nonmedicinal substance allergy status; Z86.711 Personal history of pulmonary embolism; Z86.718 Personal history of other venous thrombosis and embolism; Z79.1 Long term (current) use of non-steroidal anti-inflammatories (NSAID); Z79.51 Long term (current) use of inhaled steroids; Z79.899 Other long term (current) drug therapy
CPT/HCPCS: 36415; 71046; 80053; 81001; 84484; 85025; 87086; 87088; 87186; 93005; 96361; 96372; 96374; 96375; A9270-GY; G0378; J0696; J1650; J2405; J7030; J7050